=== PATIENT | female | born 1960 ===

== ENCOUNTER 2017-01-24 21:40 | Observation (INO) ==
[2017-01-24] MEDS ORDERED: MORPHINE 2 MG/1 ML SYRINGE IV STA (22:33)
[2017-01-24] MEDS ORDERED: ONDANSETRON 4 MG/2 ML VIAL IV STA (22:33)
[2017-01-24] MEDS ORDERED: ONDANSETRON 4 MG/2 ML VIAL ONE (22:39)
[2017-01-24] MEDS ORDERED: MORPHINE 2 MG/1 ML SYRINGE ONE (22:40)
--- NOTE | 2017-01-24 22:44 | Emergency Department Note ---
Augusto Major Brittany, am scribing for, and in the presence of, Jes Mendez DO 22:36. IAndrea Debra, DO, personally performed the services described in this documentation, ascribed by Agata Casas in my presence, and it is both accurate and complete 240 . Arrival - Arrival Chief Complaint: Chest Pain ED Nursing Triage Note: pt transferred from [facility] with c/o chest pain. pt states cp began approx 5 days ago. pt has hx cabg in 2000, htn, dm. rates pain "8" at time of triage. 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 Mode of Arrival: Stretcher Limitations: No Limitations Source: Patient, RN Notes Reviewed - History of Present Illness HPI Narrative: Ms. Gunter is a 56 y/o female presenting to the ED by EMS from [facility] for further evaluation of chest pain. Patient reports that she initially presented to [facility] with c/o chest pain which began 5 days ago which worsened 30 minutes prior to her arrival at [facility]. Patient describes this pain as in the left side of the chest radiating into the left arm. She rates this pain a 10/10 on initial onset, but as of now an 8/10 in severity. 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 Patient has a history of CABG in 2000. She has a past medical history significant for HTN and IDDM. No other complaint/pain. Onset (ago): day(s) (5) Consistency: constant Severity: severe Severity scale (1-10): 8 Quality: aching Allergies/Adverse Reactions: Allergies Allergy/AdvReac Type Severity Reaction Status Date / Time No Known Allergies Allergy Unverified 03/05/15 00:16 Home Medications: Home Medications Medication Instructions Recorded Confirmed Type Aspirin EC Tab 81 mg PO DAILY #30 tablet 12/20/14 Rx Aspirin EC Tab 81 mg PO DAILY 03/05/15 03/05/15 History Atorvastatin [Lipitor] 40 mg PO BEDTIME #30 tablet 03/05/15 Rx Carvedilol [Coreg] 3.125 mg PO BID #60 tablet 03/05/15 Rx Cefuroxime Tab [Ceftin] 500 mg PO BID #10 tablet 03/05/15 Rx Clopidogrel [Plavix] 75 mg PO DAILY #30 tablet 03/05/15 Rx Furosemide Tab [Lasix Tab] 20 mg PO DAILY #30 tablet 03/05/15 Rx Lisinopril [Prinivil] 20 mg PO DAILY #30 tablet 03/05/15 Rx Potassium Chloride 10 meq PO DAILY #30 capsule.er 03/05/15 Rx glyBURIDE [Diabeta] 5 mg PO BID W/MEALS #60 tablet 03/05/15 Rx metFORMIN [Glucophage] 500 mg PO BID W/MEALS #60 tablet 03/05/15 Rx Diphenoxylate/Atrop 2.5-0.025 1 tablet PO Q6H PRN #12 tablet 05/22/16 Rx [Lomotil Tab] Ondansetron Tab [Zofran Tab] 4 mg PO Q4H PRN #16 tablet 05/22/16 Rx Review of System - Review of System 12 point system: reviewed and no additional remarkable complaints except as stated - Review of System Constitutional: Absent: chills, fever Eyes: Absent: vision change Head/Ears/Nose/Throat: Absent: nasal drainage, sore throat Respiratory: Absent: respiratory distress Cardiovascular: Present: as per HPI, chest pain Gastrointestinal: Absent: abdominal pain, nausea, vomiting, diarrhea, constipation Genitourinary female: Absent: dysuria, frequency, urgency Musculoskeletal: Present: as per HPI, arm pain. Absent: back pain, leg pain, neck pain Skin: Absent: rash Neurological: Absent: headache Psychiatric: Absent: anxiety, depression Hematological/Lymphatic: Absent: easy bleeding, easy bruising Medical,Surgical,& Family Hx - Medical History Cardio: History of: Congenital Heart Disease, CAD, Hypertension, [place], Cardiovascular Problems Endocrine: History of: Diabetes Mellitus (IDDM), Diabetes Mellitus (NIDDM), Dyslipidemia - Surgical History Cardiac Surgeries: Sugical HX of: Cardiac Catheterization, Cardiac Surgery ( cabg 2000) Abdominal Surgeries: Surgical HX of: Cholecystectomy Reproductive Surgeries: Surgical HX of;: Hysterectomy Orthopedic Surgeries: Surgical HX of;: Orthopedic Surgery (left knee surgery) - Family History Family History: Reports;: Family Diabetes (Brother, Mom) - Social History Smoking Status: Smoker, status unknown Frequency of Alcohol Use: None Type of Drug Use: None Exam Vital Signs: Vital Signs Temperature 98.4 F 01/24/17 21:40 Pulse Rate 67 01/24/17 21:40 Respiratory Rate 20 01/24/17 21:40 Blood Pressure 160/64 01/24/17 21:40 O2 Sat by Pulse Oximetry 100 01/24/17 21:40 - General General appearance: alert, in no apparent distress, obese (mildly obese) - Head Head exam: Present: atraumatic, normocephalic, normal inspection - Eye Eye exam: Present: normal appearance, PERRL, EOMI - ENT ENT exam: Present: normal exam, normal oropharynx - Neck Neck exam: Present: normal inspection, full ROM, trachea midline - Chest Chest inspection: Present: symmetric chest wall rise. Absent: normal inspection (old surgical scar consistent with CABG) - Respiratory Respiratory exam: Present: normal lung sounds bilaterally - Cardiovascular Cardiovascular exam: Present: regular rate, normal rhythm, normal heart sounds - Abdominal Exam Abdominal exam: Present: soft, normal bowel sounds - Extremities Exam Extremities exam: Present: normal inspection - Back Exam Back exam: Present: normal inspection - Neurological Exam Neurological exam: Present: alert, oriented X3, CN II-XII intact. Absent: motor sensory deficit - Psychiatric Psychiatric exam: Present: normal affect, normal mood - Skin Skin exam: Present: warm, dry, intact, normal color Course Course Narrative: spoke with hospitalist who will admit pt. Results - Labs Lab Results: I have reviewed the patients labs Disposition Clinical Impression: Chest pain Case discussed with: patient Disposition: Still a Patient Condition: Stable Time of Disposition: 22:51
[2017-01-24 23:36] LABS: Troponin I Only 0.015 NG/ML (0.00-0.045)
[2017-01-24] MEDS ORDERED: DIPHENOXYLATE/ATROPINE 2.5-0.025 MG TABLET PO PRN (23:57)
[2017-01-24] MEDS ORDERED: ACETAMINOPHEN 325 MG TABLET PO PRN (23:58)
[2017-01-24] MEDS ORDERED: MORPHINE 2 MG/1 ML SYRINGE IV PRN (23:58)
[2017-01-24] MEDS ORDERED: ONDANSETRON 4 MG/2 ML VIAL IV PRN (23:58)
[2017-01-24] MEDS ORDERED: BISACODYL 5 MG TABLET PO PRN (23:58)
[2017-01-25] MEDS ORDERED: GLUCAGON 1 MG VIAL IM PRN (00:01)
[2017-01-25] MEDS ORDERED: DEXTROSE 50% 25 GM/50 ML VIAL IV PRN (00:01)
--- NOTE | 2017-01-25 00:02 | Hospitalist History & Physical ---
Assessment and Plan (1) Chest discomfort Status: Acute Current Visit: Yes (2) Uncontrolled hypertension Status: Acute Current Visit: Yes (3) Insulin dependent diabetes mellitus Status: Acute Current Visit: Yes (4) Medical non-compliance Status: Acute Current Visit: Yes (5) Hx of CABG Status: Acute Assessment and plan: Plan: Observe on telemetry, enzymes negative thus far, will repeat one more in the morning Resume home medications, patient counseled on her noncompliance Sliding-scale/Accu-Cheks, diabetic/cardiac diet check A1c in the morning Cardiology consultation to determine whether she requires further noninvasive versus invasive testing Current Visit: Yes History of Present Illness Chief complaint: Chest discomfort 2 days, transferred from outside hospital History of present illness: Ms. Gunter is a 56 year old female with history of CABG in 2000, hypertension, insulin-dependent diabetes, out of meds for the last 2 days or more he was approximately 2-3 days of waxing and waning left-sided chest pain with radiation down the left arm. She describes the pain as sharp/pressure-like. It occurs at rest and exertion. She states became more intense earlier this evening prompting her to come to the emergency room. She thinks her package wrapper might be Dr. Pinto she thinks she has not seen him in quite some time. She denies nausea vomiting or diarrhea. She denies shortness of breath. Her pain responded well to nitroglycerin and morphine. She is a long history of noncompliance. She had a heart catheterization back in 2014 which did not require intervention showed preserved LV function. Home Medications Medication Instructions Recorded Confirmed Type Aspirin EC Tab 81 mg PO DAILY #30 tablet 12/20/14 Rx Aspirin EC Tab 81 mg PO DAILY 03/05/15 03/05/15 History Atorvastatin [Lipitor] 40 mg PO BEDTIME #30 tablet 03/05/15 Rx Carvedilol [Coreg] 3.125 mg PO BID #60 tablet 03/05/15 Rx Cefuroxime Tab [Ceftin] 500 mg PO BID #10 tablet 03/05/15 Rx Clopidogrel [Plavix] 75 mg PO DAILY #30 tablet 03/05/15 Rx Furosemide Tab [Lasix Tab] 20 mg PO DAILY #30 tablet 03/05/15 Rx Lisinopril [Prinivil] 20 mg PO DAILY #30 tablet 03/05/15 Rx Potassium Chloride 10 meq PO DAILY #30 capsule.er 03/05/15 Rx glyBURIDE [Diabeta] 5 mg PO BID W/MEALS #60 tablet 03/05/15 Rx metFORMIN [Glucophage] 500 mg PO BID W/MEALS #60 tablet 03/05/15 Rx Diphenoxylate/Atrop 2.5-0.025 1 tablet PO Q6H PRN #12 tablet 05/22/16 Rx [Lomotil Tab] Ondansetron Tab [Zofran Tab] 4 mg PO Q4H PRN #16 tablet 05/22/16 Rx Allergies Allergy/AdvReac Type Severity Reaction Status Date / Time No Known Allergies Allergy Unverified 03/05/15 00:16 Medical,Surgical,& Family Hx - Medical History Cardio: History of: Congenital Heart Disease, CAD, Hypertension, [place] Endocrine: History of: Diabetes Mellitus (IDDM) (Out of insulin), Dyslipidemia - Surgical History Cardiac Surgeries: Sugical HX of: Cardiac Catheterization, Cardiac Surgery ( cabg 2000) Abdominal Surgeries: Surgical HX of: Cholecystectomy Reproductive Surgeries: Surgical HX of;: Hysterectomy Orthopedic Surgeries: Surgical HX of;: Orthopedic Surgery (left knee surgery) - Family History Family History: Reports;: Family Diabetes (Brother, Mom) - Social History Smoking Status: Smoker, status unknown Frequency of Alcohol Use: None Type of Drug Use: None Marital Status: Unknown Functional capacity: independent ambulation Review of systems: A 12 point review of systems is negative except as specified in the HPI Exam - Constitutional Vitals: Period Temp Pulse Resp BP Sys/Pineda Pulse Ox Last 24 Hr 98.4 F 67 20 160/64 100 Exam: EXAM: CONSTITUTIONAL: non toxic, NAD HEENT: NC, AT, OP poor dentition, ANDRES, EOMI CV: RRR no m/g/r, old midline sternotomy scar, pain slightly reproducible with palpation RESP: clear B/L, no w/r/r GI: abd soft, NT, ND, +bowel sounds INTEGUMENTARY: no lesions or rash EXTREMITIES: no c/c/e NEURO: no focal deficits PSYCH: unremarkable, A/O x3 Results - Labs Lab Results: I have reviewed the past 24 hour labs (Outside labs reviewed, troponin 2 negative) - EKG EKG shows: sinus rhythm
[2017-01-25] MEDS ORDERED: hydrALAZINE 20 MG/1 ML VIAL IV PRN (02:46)
[2017-01-25 04:55] LABS: Basophils % 0.4 % (0.0-0.8); Eosinophils # 0.1 10*3/uL (0.0-0.87); Eosinophils % 1.7 % (0.00-10.9); Hemoglobin 13.5 GM/DL (12.0-16.0); Immature Granulocytes % 0.6 %; Immature Granulocytes Absolute 0.03 #; Lymphocytes # 0.9 10*3/uL (1.4-4.0); Lymphocytes % 16.7 % (21.3-54.2); Mean Corpuscular HGB Conc 34.6 GM/DL (32-36); Mean Corpuscular Hemoglobin 31 PG (27-34); Mean Corpuscular Volume 89.4 FL (87-102); Mean Platelet Volume 11.6 FL (9.6-12.0); Monocytes # 0.3 10*3/uL (0.11-0.8); Neutrophils # 3.9 10*3/uL (1.4-7.4); Neutrophils % 75.6 % (38.7-73.9); Platelet Count 119 T/CUMM (130-400); Red Blood Count 4.36 MC/CUMM (3.8-5.5); Red Cell Distribution Width 12.5 % (9.3-17.3); White Blood Count 5.2 T/CUMM (4-12)
[2017-01-25 05:27] LABS: Troponin I Only < 0.015 NG/ML (0.00-0.045)
[2017-01-25 05:30] LABS: Calcium 9.1 MG/DL (8.5-10.1); Osmolality,Calculated 295.4 MOS/KG (273-304); Potassium 4.2 MMOL/L (3.5-5.1); Risk Ratio 3.33; VLDL CHOLESTEROL 27.6 MG/DL
--- NOTE | 2017-01-25 06:38 | EKG Report ---
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
[2017-01-25] MEDS: INSULIN REGULAR 100 UNIT/ML SUBCUT SCH ×3 (07:16→18:23)
[2017-01-25] MEDS: ENOXAPARIN 40 MG/0.4 ML SYRINGE SUBCUT SCH ×2 (07:18→08:34)
[2017-01-25] MEDS ORDERED: metFORMIN 500 MG TABLET PO SCH (08:00)
[2017-01-25] MEDS: glyBURIDE 5 MG TABLET PO SCH ×2 (08:34→16:41)
[2017-01-25] MEDS ORDERED: CLOPIDOGREL 75 MG TABLET PO SCH (09:00)
[2017-01-25] MEDS ORDERED: ASPIRIN EC 81 MG TABLET PO SCH (09:00)
[2017-01-25] MEDS ORDERED: CARVEDILOL 3.125 MG TABLET PO SCH (09:00)
[2017-01-25] MEDS ORDERED: POTASSIUM CHLORIDE 10 MEQ TABLET PO SCH (09:00)
[2017-01-25] MEDS ORDERED: LISINOPRIL 20 MG TABLET PO SCH (09:00)
[2017-01-25] MEDS ORDERED: FUROSEMIDE 20 MG TABLET PO SCH (09:00)
[2017-01-25] MEDS ORDERED: PANTOPRAZOLE 40 MG TABLET PO SCH (09:00)
--- NOTE | 2017-01-25 09:02 | Cardiology Consult Note ---
Assessment and Plan - Time spent with patient Time spent with patient: Greater than 30 minutes (1) Chest pain Status: Acute Current Visit: No (2) Hx of CABG Status: Acute Assessment and plan: See plan of care listed below. Current Visit: Yes (3) Medical non-compliance Status: Chronic Assessment and plan: See plan of care listed below. Current Visit: Yes (4) Uncontrolled hypertension Status: Chronic Assessment and plan: See plan of care listed below. Current Visit: Yes (5) Coronary artery disease Status: Chronic Assessment and plan: See plan of care listed below. Current Visit: No (6) Type 2 diabetes mellitus Status: Chronic Assessment and plan: See plan of care listed below. Current Visit: No (7) Hyperlipidemia Status: Chronic Assessment and plan: See plan of care listed below. Current Visit: Yes (8) Cardiac murmur Status: Acute Assessment and plan: See plan of care listed below. Current Visit: Yes (9) Cardiomyopathy Status: Acute Assessment and plan: See plan of care listed below. Current Visit: Yes History of Present Illness - Data of Consult Patient: known to practice within the last 3 years Consult date: 01/25/17 Requesting Physician: Eduardo Savage - Consult Narrative Reason for consult: Chest pain, known coronary artery disease History of present illness: Vp Product Management: Dr. Pinto Ms. Gunter is a 56 year old female with known history of coronary artery disease, routinely followed by Dr. Pinto. She was transferred from [facility] yesterday evening with complaints of chest pain. She has cardiac risk factors significant for known history of coronary artery disease, diabetes, hyperlipidemia, hypertension and sedentary lifestyle. Patient has a past medical history of congestive heart failure, cardiomyopathy (most recent ejection fraction 30%) and medication noncompliance. Patient is a past surgical history of CABG in 2001 with ROMANO to LAD and SVG to circumflex marginal coronary artery. She underwent cardiac stress testing February 2016 which revealed fixed anterior defect and ejection fraction of 30%. Her most recent cardiac catheterization was performed in 2014 with the following impressions noted: IMPRESSION: 1. HIGH-GRADE CORONARY ARTERY DISEASE IN THE LEFT CIRCUMFLEX DISTRIBUTION DESCRIBED ABOVE. 2. PATENT SAPHENOUS VEIN GRAFT TO THE OBTUSE MARGINAL BRANCH. 3. ATRETIC LEFT INTERNAL MAMMARY ARTERY ARTERIAL GRAFT, BUT THE LEFT ANTERIOR DESCENDING ARTERY DOES NOT HAVE ANY SIGNIFICANT OBSTRUCTIVE DISEASE AT THIS TIME. 4. PRESERVED LEFT VENTRICULAR EJECTION FRACTION. Ejection fraction 50-55 percent with normal regional wall motion. Patient was in her usual state of health until approximately 2-3 days ago when she began experiencing a pressure/tightening left-sided chest pain that radiated down her left arm. She reports that this occurs at both rest and exertion and it feels very similar to when she required bypass surgery. She denies shortness of breath, nausea, vomiting, diaphoresis, orthopnea, lower extremity swelling and palpitations. However, she does confirm easy fatigability and change in her exercise tolerance over the past several weeks. Last night, her chest pain became progressively worse while she was getting ready to go to work. She tells me that she did not feel good and at that point she decided to call the ambulance for further evaluation. She reports that this discomfort was worsened with walking. The chest discomfort continued for approximately 1 hour and was made better after receiving nitroglycerin in the ambulance. She was transported to [facility]. No records in EMR from to the hospital. She was then transported to [facility] for further evaluation of her chest discomfort. She was admitted under hospitalist service and housed on the telemetry unit. Cardiology has been consulted to further evaluate patient's chest discomfort. Patient was seen and examined on the telemetry unit. She is currently without chest pain, heaviness and tightness. Cardiac biomarkers have been negative 2. EKG reveals ST changes and T-wave abnormality inferiolaterally. Upon exam, patient's chest is tender to palpation. However, she tells me that this is not the same pain that she has been experiencing. At this point, I will keep patient n.p.o. and further discuss with Dr. Pinto regarding the need for further cardiac workup. Further plan and addendum to follow per Dr. Pinto. Assessment/plan: 1. CHEST PAIN - Patient was transported to [facility] with left-sided chest discomfort that radiated to her left arm. She reports that this pain is very similar to when she underwent CABG in 2000. Currently, patient is without chest pain, heaviness and tightness. Cardiac biomarkers have been negative 2. However, her EKG does reveal ST changes and T-wave abnormality inferior laterally. For this reason, I feel that patient will need further cardiac workup. At this point, I will keep patient n.p.o. and, hold metformin further discuss with Dr. Blair. 2. CORONARY ARTERY DISEASE - Patient has history of coronary artery disease with CABG in 2000 with ROMANO to LAD and SVG to circumflex marginal coronary artery. Continue aspirin, Plavix, beta-fransisca and lipid lowering agent. 3. DIABETES - Patient has been noncompliant with her diabetic medications. At this point, I will hold patient's metformin as she may undergo invasive workup later today. Sliding scale insulin has been initiated. Will defer further management to attending. 4. HYPERTENSION - This is been suboptimally controlled. Suspect patient is noncompliant with medications. I will increase patient's Coreg today and make further adjustments as needed throughout her hospital stay. 5. HYPERLIPIDEMIA - Continue current plan of care with Lipitor. 6. CARDIOMYOPATHY - This appears to be clinically stable at present. Most recent ejection fraction 30% noted in February 2016. Will continue current plan of care with beta-fransisca, DISHA inhibitor and diuretics. Will make further adjustments as needed throughout her hospital stay. 7. CARDIAC MURMUR - Will order echocardiogram to further evaluate this. 8. MEDICATION NONCOMPLIANCE - Counseled patient on importance of compliance with medications. CC: Farnaz Morris MD - Home Medications and Allergies Home Medications: Home Medications Medication Instructions Recorded Confirmed Type Aspirin EC Tab 81 mg PO DAILY #30 tablet 12/20/14 Rx Aspirin EC Tab 81 mg PO DAILY 03/05/15 03/05/15 History Atorvastatin [Lipitor] 40 mg PO BEDTIME #30 tablet 03/05/15 Rx Carvedilol [Coreg] 3.125 mg PO BID #60 tablet 03/05/15 Rx Cefuroxime Tab [Ceftin] 500 mg PO BID #10 tablet 03/05/15 Rx Clopidogrel [Plavix] 75 mg PO DAILY #30 tablet 03/05/15 Rx Furosemide Tab [Lasix Tab] 20 mg PO DAILY #30 tablet 03/05/15 Rx Lisinopril [Prinivil] 20 mg PO DAILY #30 tablet 03/05/15 Rx Potassium Chloride 10 meq PO DAILY #30 capsule.er 03/05/15 Rx glyBURIDE [Diabeta] 5 mg PO BID W/MEALS #60 tablet 03/05/15 Rx metFORMIN [Glucophage] 500 mg PO BID W/MEALS #60 tablet 03/05/15 Rx Diphenoxylate/Atrop 2.5-0.025 1 tablet PO Q6H PRN #12 tablet 05/22/16 Rx [Lomotil Tab] Ondansetron Tab [Zofran Tab] 4 mg PO Q4H PRN #16 tablet 05/22/16 Rx Allergies/Adverse Reactions: Allergies Allergy/AdvReac Type Severity Reaction Status Date / Time No Known Allergies Allergy Unverified 03/05/15 00:16 - Constitutional Constitutional: Present: fatigue, malaise. Absent: chills, fever(s), frequent falls, lethargy - Cardiovascular Cardiovascular: Present: chest pain at rest, chest pain with activity, radiating jaw, neck or arm pain. Absent: claudication, diaphoresis, dyspnea, dyspnea on exertion, edema, lightheadedness, orthopnea, palpitations, PND - Respiratory Respiratory: Absent: cough, dyspnea, hemoptysis, dyspnea on exertion, wheezing, snoring, pain on inspiration, change in phlegm color - Gastrointestinal Gastrointestinal: Absent: abdominal pain, coffee ground emesis, diarrhea, hematemesis, hematochezia, loose stools, melena, nausea, vomiting - Neurological Neurological: Absent: abnormal gait, abnormal speech, behavioral changes, dizziness, frequent falls, paresthesias, syncope - Hematologic/Lymphatic Hematologic/Lymphatic: Absent: easy bleeding, easy bruising, lymphadenopathy Medical,Surgical,& Family Hx - Medical History Cardio: History of: Congenital Heart Disease, CHF, CAD, Hypertension, [place], Cardiovascular Problems HEENT: History of: Eye Problem (poor vision) Endocrine: History of: Diabetes Mellitus (NIDDM), Dyslipidemia Musculoskeletal: History of: Musculoskeletal Problems (Arthritis-bilateral knees ) - Surgical History Cardiac Surgeries: Sugical HX of: Cardiac Catheterization, Cardiac Surgery ( cabg 2000) Thoracic Surgeries: Patient denies;: Lobectomy Neurologic Surgeries: Patient denies: Neurologic Surgery Abdominal Surgeries: Surgical HX of: Abdominal Surgery, Cholecystectomy Reproductive Surgeries: Surgical HX of;: Hysterectomy Patient denies;: Genitourinary Surgery Orthopedic Surgeries: Surgical HX of;: Orthopedic Surgery (left knee surgery) - Family History Family History: Reports;: Family Diabetes (Brother, Mom) - Social History Smoking Status: Never smoker Frequency of Alcohol Use: None Type of Drug Use: None Physical Examination Vital Signs Temp Pulse Resp BP Pulse Ox 98.4 F 67 20 160/64 100 01/24/17 21:40 01/24/17 21:40 01/24/17 21:40 01/24/17 21:40 01/24/17 21:40 Other: General: Appears well with no apparent distress. Pleasant and cooperative. Appears comfortable. HEENT: PERRL, normocephalic, atraumatic. Mucous membranes moist. No jaundice noted. Conjunctiva moist and clear, sclerae anicteric Neck: No JVD/HJR, no thyromegaly or lymphadenopathy noted. Cardiac: Regular rate and rhythm. Grade 2 systolic murmur Lungs: Clear to auscultation without accessory muscle use to assist the respiratory pattern. Not requiring oxygen. Abdomen: Soft, bowel sounds normoactive. Nontender and nondistended. No abdominal bruit or thrill noted. No masses noted. Extremities: No clubbing, cyanosis noted. No edema noted. Upper extremity pulses 2+. Lower extremity pulses 2+. Capillary refill less than 3 seconds. Skin: No unusual lesions or rashes. No skin breakdown appreciated. Neuro: Awake, alert and oriented 3. Moves all extremities well without hemiparesis or paralysis. No essential tremor is appreciated. Result/EKG - Labs CBC & BMP: 01/25/17 04:29 01/25/17 04:29 Lab Results: I have reviewed the past 24 hour labs Labs: Laboratory Results - last 24 hr 01/24/17 01/25/17 01/25/17 22:49 04:29 04:29 WBC 5.2 RBC 4.36 Hgb 13.5 Hct 39.0 MCV 89.4 MCH 31 MCHC 34.6 RDW 12.5 Plt Count 119 L MPV 11.6 Neut % (Auto) 75.6 H Lymph % (Auto) 16.7 L [place] % (Auto) 5.0 Eos % (Auto) 1.7 Baso % (Auto) 0.4 Neut # (Auto) 3.9 Lymph # (Auto) 0.9 L [place] # (Auto) 0.3 Eos # (Auto) 0.1 Baso # (Auto) 0.0 Immature Gran % 0.6 Nucleated RBC % 0.0 Immature Gran # 0.03 Nucleated RBCs # 0.00 Sodium 140 Potassium 4.2 Chloride 103 Carbon Dioxide 29 Anion Gap 12.2 BUN 20 H Creatinine 0.70 GFR Calculation 91 BUN/Creatinine Ratio 28.00 H Glucose 345 H POC Glucose Hemoglobin A1c Calculated Osmolality 295.4 Calcium 9.1 Magnesium 2.0 Total Creatine Kinase 54 CK-MB (CK-2) < 1.0 Troponin I 0.015 Triglycerides 138 Cholesterol 183 LDL Cholesterol 108.0 VLDL Cholesterol 27.6 HDL Cholesterol 55 Heart Disease Risk Ratio 3.33 01/25/17 01/25/17 01/25/17 04:29 04:29 06:07 WBC RBC Hgb Hct MCV MCH MCHC RDW Plt Count MPV Neut % (Auto) Lymph % (Auto) [place] % (Auto) Eos % (Auto) Baso % (Auto) Neut # (Auto) Lymph # (Auto) [place] # (Auto) Eos # (Auto) Baso # (Auto) Immature Gran % Nucleated RBC % Immature Gran # Nucleated RBCs # Sodium Potassium Chloride Carbon Dioxide Anion Gap BUN Creatinine GFR Calculation BUN/Creatinine Ratio Glucose POC Glucose 305 H Hemoglobin A1c 12.2 H Calculated Osmolality Calcium Magnesium Total Creatine Kinase 48 CK-MB (CK-2) < 1.0 Troponin I < 0.015 Triglycerides Cholesterol LDL Cholesterol VLDL Cholesterol HDL Cholesterol Heart Disease Risk Ratio 01/25/17 07:50 WBC RBC Hgb Hct MCV MCH MCHC RDW Plt Count MPV Neut % (Auto) Lymph % (Auto) [place] % (Auto) Eos % (Auto) Baso % (Auto) Neut # (Auto) Lymph # (Auto) [place] # (Auto) Eos # (Auto) Baso # (Auto) Immature Gran % Nucleated RBC % Immature Gran # Nucleated RBCs # Sodium Potassium Chloride Carbon Dioxide Anion Gap BUN Creatinine GFR Calculation BUN/Creatinine Ratio Glucose POC Glucose 344 H Hemoglobin A1c Calculated Osmolality Calcium Magnesium Total Creatine Kinase CK-MB (CK-2) Troponin I Triglycerides Cholesterol LDL Cholesterol VLDL Cholesterol HDL Cholesterol Heart Disease Risk Ratio
[2017-01-25] MEDS ORDERED: CARVEDILOL 6.25 MG TABLET PO SCH (09:33)
[2017-01-25] MEDS ORDERED: POTASSIUM CHLORIDE RIDER 10 MEQ in PREMIX 1 EACH IV PRN (09:45)
[2017-01-25] MEDS ORDERED: DIAZEPAM 5 MG TABLET PO ONE (09:45)
[2017-01-25] MEDS ORDERED: MAGNESIUM SULF RIDER 2 GM in PREMIX 1 EACH IV PRN (09:45)
[2017-01-25] MEDS ORDERED: diphenhydrAMINE CAP 25 MG CAPSULE PO ONE (09:45)
[2017-01-25] MEDS ORDERED: HEPARIN/NACL 0.9% 2 UNITS/ML 1,000 ML IV ONE (09:48)
[2017-01-25] MEDS ORDERED: LIDOCAINE 1% 20 ML VIAL ONE (09:48)
[2017-01-25] MEDS ORDERED: HYDROmorphone 2 MG/1 ML VIAL ONE (09:49)
[2017-01-25] MEDS ORDERED: MIDAZOLAM 2 MG/2 ML VIAL ONE (09:49)
[2017-01-25] MEDS ORDERED: diphenhydrAMINE CAP 50 MG CAPSULE ONE (10:00)
[2017-01-25] MEDS ORDERED: SODIUM CHLORIDE 0.45% 1,000 ML IV SCH (10:00)
[2017-01-25 10:21] LABS: PT Patient Result 10.8 SECS
[2017-01-25] MEDS ORDERED: ceFAZolin 1,000 MG VIAL ONE (10:50)
--- NOTE | 2017-01-25 11:02 | Cardiac Catheterization ---
Date of Procedure:: 01/25/17 Procedure: CLINICAL SUMMARY: The patient has known coronary artery disease and presented with chest pain symptoms and new EKG changes. She is undergoing cardiac catheterization for definitive coronary artery assessment and possible revascularization. PROCEDURES PERFORMED: 1. Right femoral percutaneous arteriotomy 2. Left heart catheterization. 3. Resting hemodynamics. 4. Left ventriculography. 5. Coronary arteriography. 6. Right femoral arteriogram. 7. Angio-Seal closure of the right femoral artery. 8. Coronary artery bypass graft angiography. DESCRIPTION OF PROCEDURE: After obtaining informed consent, the patient was brought to the cardiac catheterization lab where the right groin was prepped and draped in the usual sterile manner. Using IV sedation, local anesthesia, and Modified Seldinger technique, a needle was placed in the right femoral artery and a sheath was positioned without difficulty. A left coronary catheter was advanced over a guidewire under fluoroscopic control to the ascending aorta where angiograms of the left coronary artery were undertaken in multiple views. After adequate angiograms, this catheter was withdrawn and a right coronary catheter was advanced over a guidewire under fluoroscopic control to the ascending aorta with angiograms of the RCA were undertaken in numerous projections. After adequate angiograms, this catheter was removed and a pigtail ventriculographic catheter was advanced over a guidewire under fluoroscopic control to the aortic valve and left ventricular pressures were measured. After adequate pressures were measured, this catheter was used to perform left ventriculography in the CONTRERAS projection. This catheter was then withdrawn under hemodynamic monitoring and removed from the patient. A right femoral arteriogram was performed showing adequate sheath placement for closure device deployment. The sheath was then removed and an Angio-Seal device was used to obtain hemostasis. The patient was transferred back to the room having suffered no immediate complications. HEMODYNAMICS: See the accompanying data sheet. CORONARY ARTERIOGRAPHY: CORONARY ARTERIOGRAPHY: The left main coronary artery is a moderate-sized vessel, which bifurcates into the left anterior descending and left circumflex coronary arteries. The left main coronary artery is angiographically free of significant obstructive disease. The left circumflex coronary artery is a moderate-sized vessel, which gives off a moderate-sized obtuse marginal branch, which is occluded at its origin. This branch is seen filling via a patent saphenous vein graft. The left anterior descending coronary artery is a moderate-sized vessel which gives off a moderate-sized diagonal branch. There are mild luminal irregularities of up to 30% to 40% in the left anterior descending artery but I do not see any significant focal obstructive disease. There also may be a 60% stenosis of the origin of the second septal crook operator. The right coronary artery is a large caliber vessel which gives off the posterior descending artery in a posterolateral system. The right coronary artery is angiographically free of significant obstructive disease. There is a saphenous vein graft to the obtuse marginal branch: This graft appears to be widely patent with brisk FRANDY-III flow. The left internal mammary arterial graft appears to be atretic. The right femoral arteriogram shows a normal right iliofemoral artery with adequate sheath placement for closure device deployment. LEFT VENTRICULOGRAPHY: Left ventricular systolic function is preserved with an ejection fraction estimated at 60-65% with normal regional wall motion. PERIPHERAL ARTERIOGRAPHY: Right femoral arteriogram shows a normal right iliofemoral artery with adequate sheath placement for closure device deployment. IMPRESSIONS: 1. I do not see any significant obstructive disease in need of revascularization at this time. The saphenous vein graft to the obtuse marginal was widely patent. The internal mammary artery is atretic, but the left anterior descending does not have any significant high-grade disease at this time. 2. Normal right iliofemoral arterial system was successfully and distal closure of this vessel. 3. Preserved left ventricular systolic function. PLAN: The patient's cardiac catheterization has not shown any significant change since her previous catheterization in 2014. I do not see any high-grade disease in need of revascularization at this time. I would continue/resume medical therapy. Unfortunately, the patient has a history of severe noncompliance with medical therapy and follow-up. From my standpoint, she could be discharged home later today. I would like to follow-up with her in a couple of weeks for post cath groin check and routine follow-up on her medical problems. Anesthesia: minimal conscious sedation Surgeon / Physician: Abhi Pinto Estimated blood loss: minimal Condition: stable Disposition: floor - Medications / Follow-up
--- NOTE | 2017-01-25 12:02 | Discharge Summary ---
<Chandler Chinchilla - Last Filed: 01/25/17 11:47> Hospital Course - Hospital Course Hospital Course: This is a very pleasant 56-year-old female that presented to the ED at [facility] this morning for evaluation of chest pain and discomfort. The patient has a very extensive medical history significant for congenital heart disease, coronary artery disease, hypertension, myocardial infarction, insulin-dependent diabetes mellitus, and dyslipidemia. The patient has a surgical history of coronary artery bypass graft in 2000, heart catheterization, cholecystectomy, hysterectomy, and left knee surgery. The patient reported the onset of symptoms 2 days prior to presentation. She reported that she was out of her medications. She reported left-sided chest pain with radiation down the left arm and describes the pain as sharp and pressure-like in quality. In addition she reported that the pain occurs with both rest and exertion. She reports that the pain became so intense that she was prompted to present to the ED for further evaluation. Labs were obtained at the time of presentation. Troponin level was noted at less than 0.015. The patient was subsequently admitted to the hospitalist services for continuation of care. Cardiology was consulted at that time. On this morning the patient underwent cardiac catheterization which was essentially benign. The patient's condition is stable and she has been cleared for discharge from a cardiac standpoint. We agree with used car make ready worker recommendations. The patient will be discharged to follow-up with her primary care physician and used car make ready worker as indicated. I have seen and examined Mrs Gunter and agree with the summary above. I have reconciled her medications and counselled her about compliance with her medication regimen. Her HgbA1C is 12. She has not been taking her meds, so I am reluctant to change them as I may overshoot. She is instructed to check her blood sugars, write them down and take them to her appointment at [facility] while using the glyburide, levemir and novolog as she was prescribed previously. Specialty Discharge - Follow Up or Referrals Follow up with: Abhi Pinto MD [Physician] - 5 Days your, PCP [Other] - 2 Weeks Discharge Plan - Discharge Data Disposition: Disch To Home/Self Care - Discharge Medications New glyBURIDE [Diabeta] 5 mg PO BID W/MEALS #60 tablet Carvedilol [Coreg] 6.25 mg PO BID #60 tablet Continue Aspirin EC Tab 81 mg PO DAILY Insulin Detemir [Levemir FlexPen] 30 units SUBCUT BEDTIME Carvedilol 12.5 mg PO BID #60 tablet Clopidogrel [Plavix] 75 mg PO DAILY #30 tablet Furosemide 40 mg PO DAILY #30 tablet NIFEdipine [Nifedipine ER] 30 mg PO BEDTIME #30 tablet Potassium Chloride [Klor-Con M20] 20 meq PO DAILY #30 tablet Insulin Aspart [NovoLOG FlexPen] 7 units SUBCUT TID W/MEALS Lisinopril [Prinivil] 20 mg PO DAILY #30 tablet - Follow Up or Referral - Forms/Instructions Exam - Constitutional Vitals: Period Temp Pulse Resp BP Sys/Pineda Pulse Ox Last 24 Hr 97.4 F-98.4 F 64-92 18-21 140-201/64-92 89-100 Discharge Results Procedures and tests throughout hospitalization: Pending Orders 01/25/17 09:54 CL heart Routine 01/26/17 04:00 Basic Metabolic Panel IN AM Comp Blood Count Auto Diff IN AM Magnesium IN AM Labs on day of discharge: Labs from last 24 hours 01/25/17 01/25/17 01/25/17 11:47 09:56 07:50 WBC RBC Hgb Hct MCV MCH MCHC RDW Plt Count MPV Neut % (Auto) Lymph % (Auto) Cloud % (Auto) Eos % (Auto) Baso % (Auto) Neut # (Auto) Lymph # (Auto) Cloud # (Auto) Eos # (Auto) Baso # (Auto) Immature Gran % Nucleated RBC % Immature Gran # Nucleated RBCs # INR 1.0 PT Patient/Control Mix 10.8 Sodium Potassium Chloride Carbon Dioxide Anion Gap BUN Creatinine GFR Calculation BUN/Creatinine Ratio Glucose POC Glucose 282 H 344 H Hemoglobin A1c Calculated Osmolality Calcium Magnesium Total Creatine Kinase CK-MB (CK-2) Troponin I Triglycerides Cholesterol LDL Cholesterol VLDL Cholesterol HDL Cholesterol Heart Disease Risk Ratio 01/25/17 01/25/17 01/25/17 06:07 04:29 04:29 WBC RBC Hgb Hct MCV MCH MCHC RDW Plt Count MPV Neut % (Auto) Lymph % (Auto) Cloud % (Auto) Eos % (Auto) Baso % (Auto) Neut # (Auto) Lymph # (Auto) Cloud # (Auto) Eos # (Auto) Baso # (Auto) Immature Gran % Nucleated RBC % Immature Gran # Nucleated RBCs # INR PT Patient/Control Mix Sodium Potassium Chloride Carbon Dioxide Anion Gap BUN Creatinine GFR Calculation BUN/Creatinine Ratio Glucose POC Glucose 305 H Hemoglobin A1c 12.2 H Calculated Osmolality Calcium Magnesium Total Creatine Kinase 48 CK-MB (CK-2) < 1.0 Troponin I < 0.015 Triglycerides Cholesterol LDL Cholesterol VLDL Cholesterol HDL Cholesterol Heart Disease Risk Ratio 01/25/17 01/25/17 01/24/17 04:29 04:29 22:49 WBC 5.2 RBC 4.36 Hgb 13.5 Hct 39.0 MCV 89.4 MCH 31 MCHC 34.6 RDW 12.5 Plt Count 119 L MPV 11.6 Neut % (Auto) 75.6 H Lymph % (Auto) 16.7 L Cloud % (Auto) 5.0 Eos % (Auto) 1.7 Baso % (Auto) 0.4 Neut # (Auto) 3.9 Lymph # (Auto) 0.9 L Cloud # (Auto) 0.3 Eos # (Auto) 0.1 Baso # (Auto) 0.0 Immature Gran % 0.6 Nucleated RBC % 0.0 Immature Gran # 0.03 Nucleated RBCs # 0.00 INR PT Patient/Control Mix Sodium 140 Potassium 4.2 Chloride 103 Carbon Dioxide 29 Anion Gap 12.2 BUN 20 H Creatinine 0.70 GFR Calculation 91 BUN/Creatinine Ratio 28.00 H Glucose 345 H POC Glucose Hemoglobin A1c Calculated Osmolality 295.4 Calcium 9.1 Magnesium 2.0 Total Creatine Kinase 54 CK-MB (CK-2) < 1.0 Troponin I 0.015 Triglycerides 138 Cholesterol 183 LDL Cholesterol 108.0 VLDL Cholesterol 27.6 HDL Cholesterol 55 Heart Disease Risk Ratio 3.33 DS: Provider Date of admission: 01/24/17 23:58 Primary care physician: Hellen Lucas MD Attending physician on admission: Eduardo Savage DO Consults: 01/24/17 23:58 Consult to Physician [CONS] Routine Comment: chest pain, hx cabg 2000, IDDM Consulting Provider: Cardiology - [facility] Consult to Specialist Group: Cardiology When should Consulting Provider be notified: In am Person Notified: JUNIOR Date Notified: 01/25/17 Time Notified: 07:45 Discharging clinician: Chandler Chinchilla CNP <Farnaz Morris - Last Filed: 01/25/17 12:50> Hospital Course - Time spent with patient Time with patient DS: Greater than 30 minutes (care coordination, exam, medicine reconciliation, documentation took 35 minutes.) Diagnosis - Discharge Diagnosis (1) Hypertension Status: Chronic (2) Hyperlipidemia associated with type 2 diabetes mellitus Status: Chronic (3) Noncompliance Status: Chronic (4) Type 2 diabetes mellitus Status: Chronic (5) Hx of CABG Status: Chronic (6) Chest pain Status: Acute Discharge Plan - Discharge Data Condition at Discharge: Stable Discharge Diet: diabetic diet, heart healthy Exam - Constitutional General appearance: normal weight, no acute distress - Head Head exam: Present: normocephalic, atraumatic - Eye Eye exam: Present: EOMI. Absent: scleral icterus - Respiratory Respiratory exam: Present: clear to auscultation bilaterally - Cardiovascular Cardiovascular exam: Present: regular rate and rhythm - GI/Abdominal GI/Abdominal exam: Present: normal bowel sounds, soft. Absent: tenderness - Extremities Exam Extremities exam: Absent: edema
[2017-01-25 16:34] VITALS: BP 116/69
[2017-01-25] MEDS ORDERED: ATORVASTATIN 40 MG TABLET PO SCH (21:00)
== END 2017-01-25 18:51 | disposition home or self-care (01) ==
LOC: EDBD → EDUNIT# → N.ED 21:40 → N.EDINP 21:40 → SUATTDRO 23:58 → N.TELEN 01-25 00:46
PROVIDERS: ADMIT Internal Medicine; ATTEND Internal Medicine

== ENCOUNTER 2017-09-26 22:22 | Inpatient (IN) ==
[2017-09-27] MEDS ORDERED: DEXTROSE 50% 25 GM/50 ML VIAL IV PRN (01:54)
[2017-09-27] MEDS ORDERED: ONDANSETRON 4 MG/2 ML VIAL IV PRN (01:54)
[2017-09-27] MEDS ORDERED: GLUCAGON 1 MG VIAL IM PRN (01:54)
[2017-09-27] MEDS ORDERED: BISACODYL 5 MG TABLET PO PRN (01:54)
[2017-09-27] MEDS ORDERED: INSULIN LISPRO 100 UNIT/ML SUBCUT ONE (03:00)
[2017-09-27] MEDS: ENOXAPARIN 40 MG/0.4 ML SYRINGE SUBCUT SCH (03:13)
[2017-09-27 06:02] LABS: Basophils % 0.6 % (0.0-0.8); Eosinophils # 0.1 10*3/uL (0.0-0.87); Eosinophils % 3.5 % (0.00-10.9); Immature Granulocytes % 0.3 %; Immature Granulocytes Absolute 0.01 #; Lymphocytes # 1.4 10*3/uL (1.4-4.0); Lymphocytes % 41.2 % (21.3-54.2); Mean Corpuscular HGB Conc 35.3 GM/DL (32-36); Mean Corpuscular Hemoglobin 31 PG (27-34); Mean Corpuscular Volume 88.1 FL (87-102); Mean Platelet Volume 11.1 FL (9.6-12.0); Monocytes # 0.3 10*3/uL (0.11-0.8); Monocytes % 8.7 % (1.7-12.7); Neutrophils # 1.6 10*3/uL (1.4-7.4); Neutrophils % 45.7 % (38.7-73.9); Platelet Count 104 T/CUMM (130-400); Red Blood Count 3.86 MC/CUMM (3.8-5.5); Red Cell Distribution Width 12.5 % (9.3-17.3); White Blood Count 3.5 T/CUMM (4-12)
[2017-09-27 06:18] LABS: INR 1.1; PT Patient Result 11.1 SECS
[2017-09-27 06:50] LABS: Albumin 2.5 G/DL (3.4-5.0); Bilirubin,Total 0.7 MG/DL (0.2-1.0); Calcium 8.2 MG/DL (8.5-10.1); Magnesium 1.8 MG/DL (1.8-2.4); Potassium 3.2 MMOL/L (3.5-5.1); Risk Ratio 2.23; Thyroid Stimulating Hormone 3.86 uIU/ml (0.358-3.74); Total Protein 6.1 G/DL (6.4-8.3); VLDL CHOLESTEROL 21.4 MG/DL
[2017-09-27 06:54] LABS: Troponin I Only 0.046 NG/ML (0.00-0.045)
[2017-09-27] MEDS: INSULIN LISPRO 100 UNIT/ML SUBCUT SCH ×5 (07:30→20:49)
[2017-09-27] MEDS ORDERED: ASPIRIN 325 MG TABLET PO SCH (09:00)
[2017-09-27] MEDS: CLOPIDOGREL 75 MG TABLET PO SCH (10:56)
[2017-09-27] MEDS: POTASSIUM CHLORIDE 20 MEQ TABLET PO PRN ×3 (10:56→13:50)
[2017-09-27] MEDS: LOSARTAN 50 MG TABLET PO SCH (13:50)
[2017-09-27 13:58] LABS: Troponin I Only 0.034 NG/ML (0.00-0.045)
[2017-09-27] MEDS: ATORVASTATIN 20 MG TABLET PO SCH (20:51)
[2017-09-27] MEDS ORDERED: ROSUVASTATIN 10 MG TABLET PO SCH (21:00)
[2017-09-27] MEDS ORDERED: INSULIN GLARGINE 100 UNIT/ML SUBCUT SCH (21:00)
[2017-09-27] MEDS: CARVEDILOL 3.125 MG TABLET PO SCH (21:49)
[2017-09-28 04:33] LABS: Basophils % 0.3 % (0.0-0.8); Eosinophils # 0.1 10*3/uL (0.0-0.87); Eosinophils % 3.4 % (0.00-10.9); Hematocrit 35.9 VOL% (35.7-47.0); Hemoglobin 12.5 GM/DL (12.0-16.0); Immature Granulocytes % 0.3 %; Immature Granulocytes Absolute 0.01 #; Lymphocytes # 1.3 10*3/uL (1.4-4.0); Mean Corpuscular HGB Conc 34.8 GM/DL (32-36); Mean Corpuscular Hemoglobin 31 PG (27-34); Mean Corpuscular Volume 89.1 FL (87-102); Mean Platelet Volume 11.6 FL (9.6-12.0); Monocytes # 0.3 10*3/uL (0.11-0.8); Monocytes % 7.2 % (1.7-12.7); Neutrophils # 2.2 10*3/uL (1.4-7.4); Neutrophils % 55.8 % (38.7-73.9); Platelet Count 114 T/CUMM (130-400); Red Blood Count 4.03 MC/CUMM (3.8-5.5); Red Cell Distribution Width 12.6 % (9.3-17.3); White Blood Count 3.9 T/CUMM (4-12)
[2017-09-28] MEDS: ENOXAPARIN 40 MG/0.4 ML SYRINGE SUBCUT SCH (04:44)
[2017-09-28 04:57] LABS: Calcium 8.5 MG/DL (8.5-10.1); Osmolality,Calculated 288.1 MOS/KG (273-304); T4 (Thyroxine) 6.4 UG/DL (4.7-13.3); Troponin I Only 0.037 NG/ML (0.00-0.045)
[2017-09-28] MEDS ORDERED: POTASSIUM CHLORIDE 20 MEQ TABLET PO SCH (09:00)
[2017-09-28] MEDS ORDERED: INSULIN GLARGINE 100 UNIT/ML SUBCUT SCH (09:45)
[2017-09-28] MEDS ORDERED: cloNIDine 0.3 MG/24 HR PATCH TRANSDERM SCH (10:00)
[2017-09-28] MEDS: hydrALAZINE 20 MG/1 ML VIAL IV PRN ×2 (10:02→22:16)
[2017-09-28] MEDS: SPIRONOLACTONE 25 MG TABLET PO SCH (10:03)
[2017-09-28] MEDS: CARVEDILOL 3.125 MG TABLET PO SCH (10:03)
[2017-09-28] MEDS: ACETAMINOPHEN 325 MG TABLET PO PRN ×2 (10:03→17:57)
[2017-09-28] MEDS: INSULIN LISPRO 100 UNIT/ML SUBCUT SCH ×7 (10:04→22:14)
[2017-09-28] MEDS: ASPIRIN EC 81 MG TABLET PO SCH (10:04)
[2017-09-28] MEDS: LOSARTAN 50 MG TABLET PO SCH ×2 (10:05)
[2017-09-28] MEDS: CLOPIDOGREL 75 MG TABLET PO SCH (10:05)
[2017-09-28] MEDS: CARVEDILOL 6.25 MG TABLET PO SCH ×2 (13:07→17:08)
[2017-09-28] MEDS: ATORVASTATIN 20 MG TABLET PO SCH (22:18)
[2017-09-29] MEDS: hydrALAZINE 20 MG/1 ML VIAL IV PRN (02:07)
[2017-09-29] MEDS: ENOXAPARIN 40 MG/0.4 ML SYRINGE SUBCUT SCH (04:06)
[2017-09-29 05:17] LABS: Basophils % 0.3 % (0.0-0.8); Eosinophils # 0.1 10*3/uL (0.0-0.87); Eosinophils % 1.5 % (0.00-10.9); Hematocrit 39.1 VOL% (35.7-47.0); Hemoglobin 13.6 GM/DL (12.0-16.0); Immature Granulocytes % 0.3 %; Immature Granulocytes Absolute 0.02 #; Lymphocytes # 0.9 10*3/uL (1.4-4.0); Lymphocytes % 15.2 % (21.3-54.2); Mean Corpuscular HGB Conc 34.8 GM/DL (32-36); Mean Corpuscular Hemoglobin 31 PG (27-34); Mean Corpuscular Volume 88.1 FL (87-102); Mean Platelet Volume 11.6 FL (9.6-12.0); Monocytes # 0.4 10*3/uL (0.11-0.8); Monocytes % 6.2 % (1.7-12.7); Neutrophils # 4.5 10*3/uL (1.4-7.4); Neutrophils % 76.5 % (38.7-73.9); Platelet Count 119 T/CUMM (130-400); Red Blood Count 4.44 MC/CUMM (3.8-5.5); Red Cell Distribution Width 12.6 % (9.3-17.3); White Blood Count 5.9 T/CUMM (4-12)
[2017-09-29 05:45] LABS: Calcium 8.9 MG/DL (8.5-10.1); Osmolality,Calculated 290.3 MOS/KG (273-304); Potassium 3.9 MMOL/L (3.5-5.1)
[2017-09-29] MEDS: CLOPIDOGREL 75 MG TABLET PO SCH (10:06)
[2017-09-29] MEDS: LOSARTAN 50 MG TABLET PO SCH ×2 (10:06→10:07)
[2017-09-29] MEDS: ASPIRIN EC 81 MG TABLET PO SCH (10:06)
[2017-09-29] MEDS: CARVEDILOL 6.25 MG TABLET PO SCH ×2 (10:06→17:18)
[2017-09-29] MEDS: SPIRONOLACTONE 25 MG TABLET PO SCH (10:06)
[2017-09-29] MEDS: INSULIN LISPRO 100 UNIT/ML SUBCUT SCH ×7 (10:07→20:31)
[2017-09-29] MEDS: ACETAMINOPHEN 325 MG TABLET PO PRN ×2 (17:17→20:30)
[2017-09-29] MEDS: ATORVASTATIN 20 MG TABLET PO SCH (20:31)
[2017-09-29] MEDS: INSULIN GLARGINE 100 UNIT/ML SUBCUT SCH (20:32)
[2017-09-30] MEDS: ENOXAPARIN 40 MG/0.4 ML SYRINGE SUBCUT SCH (04:01)
[2017-09-30] MEDS: CLOPIDOGREL 75 MG TABLET PO SCH (09:26)
[2017-09-30] MEDS: INSULIN LISPRO 100 UNIT/ML SUBCUT SCH ×7 (09:26→21:19)
[2017-09-30] MEDS: LOSARTAN 50 MG TABLET PO SCH ×2 (09:27→10:12)
[2017-09-30] MEDS: SPIRONOLACTONE 25 MG TABLET PO SCH (09:27)
[2017-09-30] MEDS: CARVEDILOL 12.5 MG TABLET PO SCH ×2 (09:27→21:15)
[2017-09-30] MEDS: ASPIRIN EC 81 MG TABLET PO SCH (09:27)
[2017-09-30] MEDS: cefTRIAXone 1,000 MG in SYRINGE 1 EACH IV SCH (17:41)
[2017-09-30] MEDS: ATORVASTATIN 20 MG TABLET PO SCH (21:15)
[2017-09-30] MEDS: INSULIN GLARGINE 100 UNIT/ML SUBCUT SCH (21:19)
[2017-10-01] MEDS: ENOXAPARIN 40 MG/0.4 ML SYRINGE SUBCUT SCH (05:21)
[2017-10-01] MEDS: ACETAMINOPHEN 325 MG TABLET PO PRN (05:22)
[2017-10-01] MEDS: LOSARTAN 50 MG TABLET PO SCH (09:18)
[2017-10-01] MEDS: INSULIN LISPRO 100 UNIT/ML SUBCUT SCH ×7 (09:19→22:00)
[2017-10-01] MEDS: ASPIRIN EC 81 MG TABLET PO SCH (09:19)
[2017-10-01] MEDS: SPIRONOLACTONE 25 MG TABLET PO SCH (09:19)
[2017-10-01] MEDS: CLOPIDOGREL 75 MG TABLET PO SCH (09:19)
[2017-10-01] MEDS: CARVEDILOL 12.5 MG TABLET PO SCH ×2 (09:19→21:58)
[2017-10-01] MEDS: cefTRIAXone 1,000 MG in SYRINGE 1 EACH IV SCH (17:05)
[2017-10-01] MEDS: ATORVASTATIN 20 MG TABLET PO SCH (21:58)
[2017-10-01] MEDS: INSULIN GLARGINE 100 UNIT/ML SUBCUT SCH (22:00)
[2017-10-02] MEDS: ENOXAPARIN 40 MG/0.4 ML SYRINGE SUBCUT SCH (05:33)
[2017-10-02 06:05] LABS: Basophils % 0.3 % (0.0-0.8); Eosinophils # 0.1 10*3/uL (0.0-0.87); Eosinophils % 3.3 % (0.00-10.9); Hematocrit 33.7 VOL% (35.7-47.0); Hemoglobin 11.5 GM/DL (12.0-16.0); Immature Granulocytes % 0.5 %; Immature Granulocytes Absolute 0.02 #; Lymphocytes # 0.8 10*3/uL (1.4-4.0); Mean Corpuscular HGB Conc 34.1 GM/DL (32-36); Mean Corpuscular Hemoglobin 31 PG (27-34); Mean Corpuscular Volume 91.8 FL (87-102); Mean Platelet Volume 11.9 FL (9.6-12.0); Monocytes # 0.4 10*3/uL (0.11-0.8); Monocytes % 9.6 % (1.7-12.7); Neutrophils # 2.3 10*3/uL (1.4-7.4); Neutrophils % 64.3 % (38.7-73.9); Platelet Count 91 T/CUMM (130-400); Red Blood Count 3.67 MC/CUMM (3.8-5.5); Red Cell Distribution Width 12.6 % (9.3-17.3); White Blood Count 3.6 T/CUMM (4-12)
[2017-10-02 06:34] LABS: Eosinophils 5 % (0-10); Giant Platelets Few; Hypochromasia 1+; Lymphocytes 21 % (20-55); Ovalocytes Slight; Platelet Estimate Decreased; Segmented Neutrophils 66 % (50-85); Total Cells Counted 100
[2017-10-02 06:48] LABS: Calcium 8.5 MG/DL (8.5-10.1); Potassium 4.3 MMOL/L (3.5-5.1)
[2017-10-02] MEDS: INSULIN LISPRO 100 UNIT/ML SUBCUT SCH ×3 (07:48→11:19)
[2017-10-02] MEDS: CARVEDILOL 12.5 MG TABLET PO SCH (09:49)
[2017-10-02] MEDS: ASPIRIN EC 81 MG TABLET PO SCH (09:49)
[2017-10-02] MEDS: LOSARTAN 50 MG TABLET PO SCH (09:49)
[2017-10-02] MEDS: CLOPIDOGREL 75 MG TABLET PO SCH (09:49)
[2017-10-02] MEDS: SPIRONOLACTONE 25 MG TABLET PO SCH (09:49)
[2017-10-02 14:41] VITALS: BP 104/58
== END 2017-10-02 14:30 | DRG 65 ==
LOC: SUATTDRO 09-27 00:43 → N.CC 09-27 00:43 → N.4E 09-27 16:40
PROVIDERS: ADMIT Internal Medicine

== ENCOUNTER 2018-02-11 12:25 | Inpatient (IN) ==
[2018-02-11 13:19] LABS: Apearance,Urine CLOUDY (Clear); Bacteria,Urine Occasional /HPF (Few); Bilirubin,Urine Negative (Negative); Blood, Urine Small mg/dL (Negative); Glucose,Urine (UA) Negative (Negative); Ketones,Urine Negative (Negative); Mucus,Urine Many /LPF (Occasional); Nitrite,Urine Negative (Negative); Protein,Urine 30 MG/DL; RBC,Urine 7 /HPF (0-4); Urine Color Amber (Yellow); Urine Specific Gravity 1.008 (1.001-1.035); WBC,Urine 798 /HPF (0-6)
[2018-02-11 13:36] LABS: Basophils % 0.4 % (0.0-0.8); Eosinophils # 0.1 10*3/uL (0.0-0.87); Hematocrit 33.1 VOL% (35.7-47.0); Hemoglobin 11.3 GM/DL (12.0-16.0); Immature Granulocytes % 0.2 %; Immature Granulocytes Absolute 0.01 #; Lymphocytes % 19.2 % (21.3-54.2); Mean Corpuscular HGB Conc 34.1 GM/DL (32-36); Mean Corpuscular Hemoglobin 31 PG (27-34); Mean Corpuscular Volume 91.9 FL (87-102); Mean Platelet Volume 10.1 FL (9.6-12.0); Monocytes # 0.3 10*3/uL (0.11-0.8); Monocytes % 6.3 % (1.7-12.7); Neutrophils # 3.6 10*3/uL (1.4-7.4); Neutrophils % 71.9 % (38.7-73.9); Platelet Count 227 T/CUMM (130-400); White Blood Count 5.1 T/CUMM (4-12)
[2018-02-11 13:57] LABS: Albumin 2.8 G/DL (3.4-5.0); Bilirubin,Total 0.8 MG/DL (0.2-1.0); Calcium 9.8 MG/DL (8.5-10.1); Osmolality,Calculated 282.3 MOS/KG (273-304); Potassium 3.8 MMOL/L (3.5-5.1); Total Protein 7.9 G/DL (6.4-8.3)
[2018-02-11] MEDS ORDERED: SODIUM CHLORIDE 0.9% 500 ML IV STA (14:35)
[2018-02-11 14:40] LABS: Troponin I Only < 0.015 NG/ML (0.00-0.045)
[2018-02-11] MEDS ORDERED: CEFEPIME 1,000 MG in SODIUM CHLORIDE 0.9% 100 ML IV STA (14:44)
[2018-02-11] MEDS ORDERED: ONDANSETRON 4 MG/2 ML VIAL IV PRN (15:32)
[2018-02-11] MEDS ORDERED: ACETAMINOPHEN 325 MG TABLET PO PRN (15:32)
[2018-02-11] MEDS ORDERED: DEXTROSE 50% 25 GM/50 ML VIAL IV PRN (16:00)
[2018-02-11] MEDS ORDERED: GLUCAGON 1 MG VIAL IM PRN (16:00)
[2018-02-11] MEDS: GABAPENTIN 100 MG CAPSULE PO SCH ×2 (18:44→23:30)
[2018-02-11] MEDS: INSULIN LISPRO 100 UNIT/ML SUBCUT SCH ×2 (18:44→21:37)
[2018-02-11] MEDS: DOCUSATE/SENNA 50-8.6 MG TABLET PO SCH (21:36)
[2018-02-11] MEDS: CARVEDILOL 6.25 MG TABLET PO SCH (21:37)
[2018-02-12 05:48] LABS: Basophils % 0.5 % (0.0-0.8); Eosinophils # 0.1 10*3/uL (0.0-0.87); Eosinophils % 1.8 % (0.00-10.9); Hematocrit 30.5 VOL% (35.7-47.0); Hemoglobin 10.4 GM/DL (12.0-16.0); Immature Granulocytes % 0.2 %; Immature Granulocytes Absolute 0.01 #; Lymphocytes # 1.2 10*3/uL (1.4-4.0); Lymphocytes % 28.5 % (21.3-54.2); Mean Corpuscular HGB Conc 34.1 GM/DL (32-36); Mean Corpuscular Hemoglobin 32 PG (27-34); Mean Corpuscular Volume 93.3 FL (87-102); Mean Platelet Volume 10.1 FL (9.6-12.0); Monocytes # 0.4 10*3/uL (0.11-0.8); Monocytes % 8.3 % (1.7-12.7); Neutrophils # 2.6 10*3/uL (1.4-7.4); Neutrophils % 60.7 % (38.7-73.9); Platelet Count 176 T/CUMM (130-400); Red Blood Count 3.27 MC/CUMM (3.8-5.5); Red Cell Distribution Width 14.1 % (9.3-17.3); White Blood Count 4.4 T/CUMM (4-12)
[2018-02-12 06:12] LABS: Calcium 9.2 MG/DL (8.5-10.1); Osmolality,Calculated 288.7 MOS/KG (273-304); Potassium 3.9 MMOL/L (3.5-5.1); Risk Ratio 3.26; VLDL CHOLESTEROL 23.4 MG/DL
[2018-02-12 06:15] LABS: Eosinophils 2 % (0-10); Lymphocytes 24 % (20-55); Segmented Neutrophils 67 % (50-85); Total Cells Counted 100
[2018-02-12 06:16] LABS: Hypochromasia Slight; Microcytosis Slight; Ovalocytes Slight; Platelet Estimate Adequate
[2018-02-12 06:17] LABS: Free T4 (Free Thyroxine) 1.51 NG/DL (0.76-1.46); Thyroid Stimulating Hormone 0.123 uIU/ml (0.358-3.74)
[2018-02-12] MEDS ORDERED: LEVOTHYROXINE 100 MCG TABLET PO SCH (06:30)
[2018-02-12] MEDS: INSULIN LISPRO 100 UNIT/ML SUBCUT SCH ×4 (08:23→21:52)
[2018-02-12] MEDS: cefTRIAXone 1,000 MG in SYRINGE 1 EACH IV SCH (09:47)
[2018-02-12] MEDS: ASPIRIN EC 81 MG TABLET PO SCH (10:05)
[2018-02-12] MEDS: GABAPENTIN 100 MG CAPSULE PO SCH ×2 (10:05→16:38)
[2018-02-12] MEDS: CARVEDILOL 6.25 MG TABLET PO SCH ×2 (10:06→22:03)
[2018-02-12] MEDS: DOCUSATE/SENNA 50-8.6 MG TABLET PO SCH ×2 (10:06→22:03)
[2018-02-12] MEDS: LISINOPRIL 20 MG TABLET PO SCH (10:06)
[2018-02-12] MEDS: PANTOPRAZOLE 40 MG TABLET PO SCH (10:06)
[2018-02-12] MEDS: CLOPIDOGREL 75 MG TABLET PO SCH (10:06)
[2018-02-12] MEDS: MORPHINE 4 MG/1 ML VIAL IV PRN (15:45)
[2018-02-13] MEDS: GABAPENTIN 100 MG CAPSULE PO SCH ×3 (01:31→17:49)
[2018-02-13 05:52] LABS: Basophils % 0.2 % (0.0-0.8); Eosinophils # 0.1 10*3/uL (0.0-0.87); Eosinophils % 1.9 % (0.00-10.9); Hematocrit 30.4 VOL% (35.7-47.0); Hemoglobin 9.9 GM/DL (12.0-16.0); Immature Granulocytes % 0.2 %; Immature Granulocytes Absolute 0.01 #; Lymphocytes # 1.1 10*3/uL (1.4-4.0); Lymphocytes % 26.5 % (21.3-54.2); Mean Corpuscular HGB Conc 32.6 GM/DL (32-36); Mean Corpuscular Hemoglobin 32 PG (27-34); Mean Corpuscular Volume 97.1 FL (87-102); Mean Platelet Volume 9.9 FL (9.6-12.0); Monocytes # 0.3 10*3/uL (0.11-0.8); Monocytes % 8.3 % (1.7-12.7); Neutrophils # 2.6 10*3/uL (1.4-7.4); Neutrophils % 62.9 % (38.7-73.9); Platelet Count 142 T/CUMM (130-400); Red Blood Count 3.13 MC/CUMM (3.8-5.5); Red Cell Distribution Width 14.2 % (9.3-17.3); White Blood Count 4.1 T/CUMM (4-12)
[2018-02-13 06:16] LABS: Calcium 9.5 MG/DL (8.5-10.1); Osmolality,Calculated 291.7 MOS/KG (273-304)
[2018-02-13 06:19] LABS: Band Neutrophils 7 % (0-10); Lymphocytes 23 % (20-55); Segmented Neutrophils 66 % (50-85); Total Cells Counted 100
[2018-02-13 06:22] LABS: Anisocytosis 1+; Ovalocytes 1+; Poikilocytosis 1+
[2018-02-13] MEDS: LEVOTHYROXINE 88 MCG TABLET PO SCH (07:48)
[2018-02-13] MEDS: ASPIRIN EC 81 MG TABLET PO SCH (09:44)
[2018-02-13] MEDS: INSULIN LISPRO 100 UNIT/ML SUBCUT SCH ×4 (09:44→22:11)
[2018-02-13] MEDS: PANTOPRAZOLE 40 MG TABLET PO SCH (09:45)
[2018-02-13] MEDS: CARVEDILOL 6.25 MG TABLET PO SCH ×2 (09:45→22:09)
[2018-02-13] MEDS: DOCUSATE/SENNA 50-8.6 MG TABLET PO SCH ×2 (09:45→22:09)
[2018-02-13] MEDS: LISINOPRIL 20 MG TABLET PO SCH (09:45)
[2018-02-13] MEDS: CLOPIDOGREL 75 MG TABLET PO SCH (09:45)
[2018-02-13] MEDS: MORPHINE 4 MG/1 ML VIAL IV PRN (10:02)
[2018-02-13] MEDS: cefTRIAXone 1,000 MG in SYRINGE 1 EACH IV SCH (10:02)
[2018-02-13] MEDS ORDERED: FLUCONAZOLE 200 MG TABLET PO SCH (13:00)
[2018-02-13] MEDS: FLUCONAZOLE INJ 200 MG in PREMIX 1 EACH IV SCH (14:51)
[2018-02-14] MEDS: GABAPENTIN 100 MG CAPSULE PO SCH ×3 (00:33→18:06)
[2018-02-14 05:46] LABS: Basophils % 0.5 % (0.0-0.8); Eosinophils # 0.1 10*3/uL (0.0-0.87); Eosinophils % 2.2 % (0.00-10.9); Hematocrit 28.1 VOL% (35.7-47.0); Hemoglobin 9.3 GM/DL (12.0-16.0); Lymphocytes # 0.9 10*3/uL (1.4-4.0); Lymphocytes % 22.5 % (21.3-54.2); Mean Corpuscular HGB Conc 33.1 GM/DL (32-36); Mean Corpuscular Hemoglobin 31 PG (27-34); Mean Corpuscular Volume 94.3 FL (87-102); Mean Platelet Volume 10.1 FL (9.6-12.0); Monocytes # 0.3 10*3/uL (0.11-0.8); Monocytes % 7.7 % (1.7-12.7); Neutrophils # 2.8 10*3/uL (1.4-7.4); Neutrophils % 67.1 % (38.7-73.9); Platelet Count 151 T/CUMM (130-400); Red Blood Count 2.98 MC/CUMM (3.8-5.5); Red Cell Distribution Width 13.9 % (9.3-17.3); White Blood Count 4.2 T/CUMM (4-12)
[2018-02-14 06:12] LABS: Calcium 9.6 MG/DL (8.5-10.1); Osmolality,Calculated 293.7 MOS/KG (273-304); Potassium 4.1 MMOL/L (3.5-5.1)
[2018-02-14 06:40] LABS: Band Neutrophils 3 % (0-10); Eosinophils 1 % (0-10); Hypochromasia 1+; Lymphocytes 19 % (20-55); Microcytosis Slight; Ovalocytes Slight; Platelet Estimate Adequate; Segmented Neutrophils 70 % (50-85); Total Cells Counted 100
[2018-02-14] MEDS: LEVOTHYROXINE 88 MCG TABLET PO SCH (07:54)
[2018-02-14] MEDS: FLUCONAZOLE INJ 200 MG in PREMIX 1 EACH IV SCH (08:26)
[2018-02-14] MEDS: cefTRIAXone 1,000 MG in SYRINGE 1 EACH IV SCH (08:26)
[2018-02-14] MEDS: MORPHINE 4 MG/1 ML VIAL IV PRN ×2 (08:33→15:00)
[2018-02-14] MEDS: INSULIN LISPRO 100 UNIT/ML SUBCUT SCH ×4 (08:36→18:07)
[2018-02-14] MEDS: PANTOPRAZOLE 40 MG TABLET PO SCH (08:37)
[2018-02-14] MEDS: LISINOPRIL 20 MG TABLET PO SCH (08:37)
[2018-02-14] MEDS: ASPIRIN EC 81 MG TABLET PO SCH (08:37)
[2018-02-14] MEDS: CLOPIDOGREL 75 MG TABLET PO SCH (08:37)
[2018-02-14] MEDS: CARVEDILOL 6.25 MG TABLET PO SCH ×2 (08:37→20:53)
[2018-02-14] MEDS: DOCUSATE/SENNA 50-8.6 MG TABLET PO SCH ×2 (08:37→20:53)
[2018-02-15] MEDS: INSULIN LISPRO 100 UNIT/ML SUBCUT SCH ×4 (00:40→17:33)
[2018-02-15] MEDS: GABAPENTIN 100 MG CAPSULE PO SCH ×3 (00:46→17:24)
[2018-02-15 04:12] LABS: Basophils % 0.4 % (0.0-0.8); Eosinophils % 0.6 % (0.00-10.9); Hematocrit 27.9 VOL% (35.7-47.0); Hemoglobin 9.3 GM/DL (12.0-16.0); Immature Granulocytes % 0.4 %; Immature Granulocytes Absolute 0.02 #; Lymphocytes # 0.9 10*3/uL (1.4-4.0); Lymphocytes % 16.5 % (21.3-54.2); Mean Corpuscular HGB Conc 33.3 GM/DL (32-36); Mean Corpuscular Hemoglobin 32 PG (27-34); Mean Corpuscular Volume 95.5 FL (87-102); Mean Platelet Volume 10.8 FL (9.6-12.0); Monocytes # 0.5 10*3/uL (0.11-0.8); Monocytes % 9.4 % (1.7-12.7); Neutrophils # 3.9 10*3/uL (1.4-7.4); Neutrophils % 72.7 % (38.7-73.9); Platelet Count 148 T/CUMM (130-400); Red Blood Count 2.92 MC/CUMM (3.8-5.5); Red Cell Distribution Width 14.2 % (9.3-17.3); White Blood Count 5.4 T/CUMM (4-12)
[2018-02-15 04:23] LABS: Calcium 9.3 MG/DL (8.5-10.1); Osmolality,Calculated 298.6 MOS/KG (273-304); Potassium 4.2 MMOL/L (3.5-5.1)
[2018-02-15] MEDS: LEVOTHYROXINE 88 MCG TABLET PO SCH (05:55)
[2018-02-15] MEDS ORDERED: MAGNESIUM SULFATE 2 GM/50 ML PREMIX IV ONE (08:00)
[2018-02-15] MEDS: FLUCONAZOLE INJ 200 MG in PREMIX 1 EACH IV SCH (09:22)
[2018-02-15] MEDS ORDERED: SODIUM CHLORIDE 0.9% 500 ML IV ONE (09:48)
[2018-02-15] MEDS: LISINOPRIL 20 MG TABLET PO SCH (09:51)
[2018-02-15] MEDS: PANTOPRAZOLE 40 MG TABLET PO SCH (09:51)
[2018-02-15] MEDS: DOCUSATE/SENNA 50-8.6 MG TABLET PO SCH ×2 (09:52→21:28)
[2018-02-15] MEDS: CARVEDILOL 6.25 MG TABLET PO SCH ×2 (09:52→21:28)
[2018-02-16] MEDS: INSULIN LISPRO 100 UNIT/ML SUBCUT SCH ×4 (00:50→18:23)
[2018-02-16] MEDS: GABAPENTIN 100 MG CAPSULE PO SCH ×3 (00:50→18:24)
[2018-02-16 08:34] LABS: Basophils % 0.2 % (0.0-0.8); Eosinophils # 0.1 10*3/uL (0.0-0.87); Eosinophils % 1.2 % (0.00-10.9); Hematocrit 27.8 VOL% (35.7-47.0); Hemoglobin 9.2 GM/DL (12.0-16.0); Immature Granulocytes % 0.2 %; Immature Granulocytes Absolute 0.01 #; Lymphocytes # 0.8 10*3/uL (1.4-4.0); Lymphocytes % 15.8 % (21.3-54.2); Mean Corpuscular HGB Conc 33.1 GM/DL (32-36); Mean Corpuscular Hemoglobin 31 PG (27-34); Mean Corpuscular Volume 94.9 FL (87-102); Mean Platelet Volume 10.1 FL (9.6-12.0); Monocytes # 0.3 10*3/uL (0.11-0.8); Monocytes % 6.8 % (1.7-12.7); Neutrophils # 3.7 10*3/uL (1.4-7.4); Neutrophils % 75.8 % (38.7-73.9); Platelet Count 134 T/CUMM (130-400); Red Blood Count 2.93 MC/CUMM (3.8-5.5); Red Cell Distribution Width 14.2 % (9.3-17.3); White Blood Count 4.9 T/CUMM (4-12)
[2018-02-16] MEDS: CARVEDILOL 6.25 MG TABLET PO SCH ×2 (09:07→22:05)
[2018-02-16] MEDS: LISINOPRIL 20 MG TABLET PO SCH (09:07)
[2018-02-16] MEDS: LEVOTHYROXINE 88 MCG TABLET PO SCH (09:07)
[2018-02-16] MEDS: PANTOPRAZOLE 40 MG TABLET PO SCH (09:07)
[2018-02-16] MEDS: DOCUSATE/SENNA 50-8.6 MG TABLET PO SCH ×2 (09:07→22:04)
[2018-02-16] MEDS: FLUCONAZOLE INJ 200 MG in PREMIX 1 EACH IV SCH (09:08)
[2018-02-16 10:19] LABS: Hypochromasia 1+; Polychromasia Slight
[2018-02-16] MEDS ORDERED: METOCLOPRAMIDE 10 MG/2 ML VIAL IM SCH (13:00)
[2018-02-16] MEDS ORDERED: METOCLOPRAMIDE 10 MG/2 ML VIAL IV PRN (14:52)
[2018-02-16] MEDS ORDERED: PYRIDOSTIGMINE 10 MG/2 ML IV SCH (18:00)
[2018-02-16] MEDS: HALOPERIDOL 5 MG/ML AMP IV PRN (22:05)
[2018-02-17] MEDS: GABAPENTIN 100 MG CAPSULE PO SCH ×3 (01:28→16:30)
[2018-02-17] MEDS: INSULIN LISPRO 100 UNIT/ML SUBCUT SCH ×4 (01:29→18:24)
[2018-02-17] MEDS: HALOPERIDOL 5 MG/ML AMP IV PRN (04:55)
[2018-02-17] MEDS: LEVOTHYROXINE 88 MCG TABLET PO SCH (05:47)
[2018-02-17 06:07] LABS: Calcium 9.1 MG/DL (8.5-10.1); Osmolality,Calculated 288.1 MOS/KG (273-304); Potassium 3.8 MMOL/L (3.5-5.1); Prealbumin 7.7 MG/DL (20-40)
[2018-02-17] MEDS: FLUCONAZOLE INJ 200 MG in PREMIX 1 EACH IV SCH (08:42)
[2018-02-17] MEDS: LISINOPRIL 20 MG TABLET PO SCH (08:43)
[2018-02-17] MEDS: DOCUSATE/SENNA 50-8.6 MG TABLET PO SCH ×2 (08:43→22:33)
[2018-02-17] MEDS: CARVEDILOL 6.25 MG TABLET PO SCH ×2 (08:43→22:33)
[2018-02-17] MEDS: PANTOPRAZOLE 40 MG TABLET PO SCH (08:43)
[2018-02-17] MEDS ORDERED: MAGNESIUM SULF RIDER 2 GM in PREMIX 1 EACH IV ONE (14:00)
[2018-02-17] MEDS ORDERED: METOCLOPRAMIDE 10 MG/2 ML VIAL IV PRN (16:13)
[2018-02-18] MEDS: INSULIN LISPRO 100 UNIT/ML SUBCUT SCH ×2 (01:34→06:04)
[2018-02-18] MEDS: GABAPENTIN 100 MG CAPSULE PO SCH ×2 (01:36→09:42)
[2018-02-18 05:48] LABS: Basophils % 0.3 % (0.0-0.8); Eosinophils # 0.1 10*3/uL (0.0-0.87); Hematocrit 27.5 VOL% (35.7-47.0); Hemoglobin 9.3 GM/DL (12.0-16.0); Immature Granulocytes % 0.3 %; Immature Granulocytes Absolute 0.01 #; Lymphocytes # 0.8 10*3/uL (1.4-4.0); Lymphocytes % 20.5 % (21.3-54.2); Mean Corpuscular HGB Conc 33.8 GM/DL (32-36); Mean Corpuscular Hemoglobin 32 PG (27-34); Mean Corpuscular Volume 93.9 FL (87-102); Monocytes # 0.2 10*3/uL (0.11-0.8); Monocytes % 6.3 % (1.7-12.7); Neutrophils # 2.6 10*3/uL (1.4-7.4); Neutrophils % 69.6 % (38.7-73.9); Platelet Count 124 T/CUMM (130-400); Red Blood Count 2.93 MC/CUMM (3.8-5.5); Red Cell Distribution Width 14.1 % (9.3-17.3); White Blood Count 3.7 T/CUMM (4-12)
[2018-02-18 06:20] LABS: Calcium 8.8 MG/DL (8.5-10.1)
[2018-02-18 06:21] LABS: Band Neutrophils 1 % (0-10); Eosinophils 5 % (0-10); Lymphocytes 17 % (20-55); Segmented Neutrophils 71 % (50-85); Total Cells Counted 100
[2018-02-18 06:22] LABS: Hypochromasia 1+; Ovalocytes Slight; Platelet Estimate Decreased
[2018-02-18] MEDS: LEVOTHYROXINE 88 MCG TABLET PO SCH (07:05)
[2018-02-18] MEDS: DOCUSATE/SENNA 50-8.6 MG TABLET PO SCH (09:41)
[2018-02-18] MEDS: LISINOPRIL 20 MG TABLET PO SCH (09:41)
[2018-02-18] MEDS: PANTOPRAZOLE 40 MG TABLET PO SCH (09:42)
[2018-02-18] MEDS: CARVEDILOL 6.25 MG TABLET PO SCH (09:42)
[2018-02-18] MEDS: FLUCONAZOLE INJ 200 MG in PREMIX 1 EACH IV SCH (09:48)
[2018-02-18] MEDS ORDERED: INSULIN LISPRO 100 UNIT/ML SUBCUT SCH (11:30)
[2018-02-18 11:58] VITALS: BP 157/78
== END 2018-02-18 16:29 | disposition home or self-care (01) | DRG 757 ==
LOC: EDBD → EDUNIT# → N.ED 12:25 → N.EDINP 15:20 → SUATTDRO 15:20 → N.EDINP 18:17 → N.2E 18:18
PROVIDERS: ADMIT Internal Medicine; ATTEND Internal Medicine

== ENCOUNTER 2018-05-07 15:43 | Inpatient (IN) ==
[2018-05-07] MEDS ORDERED: SODIUM CHLORIDE 0.9% 1,450 ML IV ONE (16:38)
[2018-05-07 17:12] LABS: Eosinophils % 0.2 % (0.00-10.9); Immature Granulocytes % 0.3 %; Immature Granulocytes Absolute 0.02 #; Platelet Count 108 T/CUMM (130-400); Red Cell Distribution Width 12.4 % (9.3-17.3)
[2018-05-07 17:21] LABS: Apearance,Urine CLOUDY (Clear); Bacteria,Urine Occasional /HPF (Few); Bilirubin,Urine Negative (Negative); Blood, Urine Negative (Negative); Glucose,Urine (UA) >=500 mg/dL (Negative); Ketones,Urine Negative (Negative); Nitrite,Urine Negative (Negative); Protein,Urine 30 MG/DL; RBC,Urine 4 /HPF (0-4); Urine Color Yellow (Yellow); Urine Specific Gravity 1.016 (1.001-1.035); WBC,Urine 68 /HPF (0-6)
[2018-05-07 17:24] LABS: INR 1.1; PT Patient Result 11.5 SECS
[2018-05-07 17:35] LABS: Albumin 2.8 G/DL (3.4-5.0); Bilirubin,Total 0.6 MG/DL (0.2-1.0); Calcium 9.4 MG/DL (8.5-10.1); Osmolality,Calculated 362.9 MOS/KG (273-304); Potassium 4.2 MMOL/L (3.5-5.1); Prealbumin 18.8 MG/DL (20-40); Total Protein 7.8 G/DL (6.4-8.3)
[2018-05-07 17:37] LABS: Basophils % 0.3 % (0.0-0.8); Hematocrit 48.8 VOL% (35.7-47.0); Lymphocytes # 1.7 10*3/uL (1.4-4.0); Mean Corpuscular HGB Conc 30.7 GM/DL (32-36); Mean Corpuscular Hemoglobin 32 PG (27-34); Mean Corpuscular Volume 103.2 FL (87-102); Mean Platelet Volume 13.2 FL (9.6-12.0); Monocytes # 0.2 10*3/uL (0.11-0.8); Monocytes % 3.3 % (1.7-12.7); Neutrophils # 4.5 10*3/uL (1.4-7.4); Neutrophils % 69.9 % (38.7-73.9); Red Blood Count 4.73 MC/CUMM (3.8-5.5); White Blood Count 6.4 T/CUMM (4-12)
[2018-05-07] MEDS ORDERED: cefTRIAXone 2,000 MG in SODIUM CHLORIDE 0.9% 100 ML IV ONE (17:46)
[2018-05-07] MEDS ORDERED: cefTRIAXone 1,000 MG VIAL ONE (17:48)
[2018-05-07] MEDS ORDERED: DEXTROSE 50% 25 GM/50 ML VIAL IV PRN (18:02)
[2018-05-07] MEDS ORDERED: GLUCAGON 1 MG VIAL IM PRN (18:02)
[2018-05-07] MEDS ORDERED: ONDANSETRON 4 MG/2 ML VIAL IV PRN (18:02)
[2018-05-07] MEDS ORDERED: INSULIN REGULAR 100 UNIT/ML IV STA (18:05)
[2018-05-07] MEDS: INSULIN GLARGINE 100 UNIT/ML SUBCUT SCH (21:23)
[2018-05-07] MEDS: INSULIN REGULAR 100 UNIT/ML SUBCUT SCH (21:24)
[2018-05-07] MEDS: ENOXAPARIN 40 MG/0.4 ML SYRINGE SUBCUT SCH (21:25)
[2018-05-08] MEDS: SODIUM CHLORIDE 23.4% CONC INJ 38.5 MEQ in STERILE WATER INJ 1,000 ML IV SCH ×3 (01:19→11:23)
[2018-05-08 04:59] LABS: Basophils % 0.3 % (0.0-0.8); Eosinophils % 0.2 % (0.00-10.9); Hematocrit 41.2 VOL% (35.7-47.0); Immature Granulocytes % 0.3 %; Immature Granulocytes Absolute 0.02 #; Lymphocytes # 1.6 10*3/uL (1.4-4.0); Mean Corpuscular HGB Conc 31.1 GM/DL (32-36); Mean Corpuscular Hemoglobin 31 PG (27-34); Mean Platelet Volume 13.1 FL (9.6-12.0); Monocytes # 0.3 10*3/uL (0.11-0.8); Monocytes % 3.8 % (1.7-12.7); Neutrophils # 4.7 10*3/uL (1.4-7.4); Neutrophils % 71.4 % (38.7-73.9); Red Blood Count 4.08 MC/CUMM (3.8-5.5); Red Cell Distribution Width 12.4 % (9.3-17.3); White Blood Count 6.6 T/CUMM (4-12)
[2018-05-08 05:04] LABS: Hemoglobin 12.8 GM/DL (12.0-16.0); Platelet Count 84 T/CUMM (130-400)
[2018-05-08 05:23] LABS: Calcium 9.2 MG/DL (8.5-10.1); Osmolality,Calculated 351.5 MOS/KG (273-304); Potassium 3.7 MMOL/L (3.5-5.1)
[2018-05-08 05:37] LABS: Folate > 24.0 NG/ML (5.4-24.0); Vitamin B12 701 PG/ML (211-911)
[2018-05-08 05:48] LABS: Platelet Estimate Decreased
[2018-05-08] MEDS: LEVOTHYROXINE 100 MCG TABLET PO SCH (06:28)
[2018-05-08] MEDS: INSULIN REGULAR 100 UNIT/ML SUBCUT SCH ×4 (08:09→21:01)
[2018-05-08] MEDS: ASPIRIN EC 81 MG TABLET PO SCH ×2 (09:27→10:36)
[2018-05-08] MEDS: PANTOPRAZOLE 40 MG TABLET PO SCH ×2 (09:27→10:36)
[2018-05-08] MEDS: LISINOPRIL 20 MG TABLET PO SCH ×2 (09:27→10:37)
[2018-05-08] MEDS: CLOPIDOGREL 75 MG TABLET PO SCH ×2 (09:27→10:37)
[2018-05-08] MEDS: DEXTROSE 5% 1,000 ML IV SCH ×2 (10:37→23:59)
[2018-05-08] MEDS: cefTRIAXone 1,000 MG in SYRINGE 1 EACH IV SCH (17:01)
[2018-05-08] MEDS: INSULIN GLARGINE 100 UNIT/ML SUBCUT SCH (21:00)
[2018-05-08] MEDS: ENOXAPARIN 40 MG/0.4 ML SYRINGE SUBCUT SCH (21:00)
[2018-05-08] MEDS ORDERED: INSULIN REGULAR 100 UNIT/ML SUBCUT ONE (23:50)
[2018-05-09] MEDS: LEVOTHYROXINE 100 MCG TABLET PO SCH ×2 (06:18→06:25)
[2018-05-09] MEDS: PANTOPRAZOLE 40 MG TABLET PO SCH (09:16)
[2018-05-09] MEDS: CLOPIDOGREL 75 MG TABLET PO SCH (09:16)
[2018-05-09] MEDS: LISINOPRIL 20 MG TABLET PO SCH (09:16)
[2018-05-09] MEDS: INSULIN REGULAR 100 UNIT/ML SUBCUT SCH ×5 (09:16→23:53)
[2018-05-09] MEDS: ASPIRIN EC 81 MG TABLET PO SCH (09:17)
[2018-05-09 09:20] LABS: Basophils % 0.2 % (0.0-0.8); Eosinophils # 0.1 10*3/uL (0.0-0.87); Eosinophils % 1.4 % (0.00-10.9); Hematocrit 33.6 VOL% (35.7-47.0); Hemoglobin 10.9 GM/DL (12.0-16.0); Immature Granulocytes % 0.5 %; Immature Granulocytes Absolute 0.03 #; Lymphocytes # 1.3 10*3/uL (1.4-4.0); Lymphocytes % 22.4 % (21.3-54.2); Mean Corpuscular HGB Conc 32.4 GM/DL (32-36); Mean Corpuscular Hemoglobin 31 PG (27-34); Mean Corpuscular Volume 96.6 FL (87-102); Mean Platelet Volume 14.3 FL (9.6-12.0); Monocytes # 0.2 10*3/uL (0.11-0.8); Monocytes % 3.1 % (1.7-12.7); Neutrophils # 4.2 10*3/uL (1.4-7.4); Neutrophils % 72.4 % (38.7-73.9); Platelet Count 62 T/CUMM (130-400); Red Blood Count 3.48 MC/CUMM (3.8-5.5); Red Cell Distribution Width 12.4 % (9.3-17.3); White Blood Count 5.9 T/CUMM (4-12)
[2018-05-09 09:38] LABS: Calcium 8.1 MG/DL (8.5-10.1); Osmolality,Calculated 329.6 MOS/KG (273-304); Potassium 3.6 MMOL/L (3.5-5.1)
[2018-05-09 09:40] LABS: Anisocytosis 1+; Band Neutrophils 5 % (0-10); Eosinophils 1 % (0-10); Lymphocytes 19 % (20-55); Platelet Estimate Decreased; Segmented Neutrophils 72 % (50-85); Total Cells Counted 100
[2018-05-09] MEDS ORDERED: SKIN HEALING OINT (AQUAPHOR) 50 GM TUBE TOP PRN (15:00)
[2018-05-09] MEDS: DEXTROSE 5% 1,000 ML IV SCH (17:27)
[2018-05-09] MEDS: cefTRIAXone 1,000 MG in SYRINGE 1 EACH IV SCH (17:28)
[2018-05-09] MEDS: TAMSULOSIN 0.4 MG CAPSULE PO SCH (21:09)
[2018-05-09] MEDS: INSULIN GLARGINE 100 UNIT/ML SUBCUT SCH (21:09)
[2018-05-09] MEDS: ENOXAPARIN 40 MG/0.4 ML SYRINGE SUBCUT SCH (21:10)
[2018-05-10] MEDS: DEXTROSE 5% 1,000 ML IV SCH (04:41)
[2018-05-10] MEDS: LEVOTHYROXINE 100 MCG TABLET PO SCH (06:18)
[2018-05-10 06:40] LABS: Basophils % 0.2 % (0.0-0.8); Eosinophils # 0.1 10*3/uL (0.0-0.87); Eosinophils % 1.6 % (0.00-10.9); Hematocrit 31.6 VOL% (35.7-47.0); Hemoglobin 10.3 GM/DL (12.0-16.0); Immature Granulocytes % 0.7 %; Immature Granulocytes Absolute 0.03 #; Lymphocytes # 0.8 10*3/uL (1.4-4.0); Lymphocytes % 19.2 % (21.3-54.2); Mean Corpuscular HGB Conc 32.6 GM/DL (32-36); Mean Corpuscular Hemoglobin 31 PG (27-34); Mean Corpuscular Volume 95.5 FL (87-102); Mean Platelet Volume 14.2 FL (9.6-12.0); Monocytes # 0.1 10*3/uL (0.11-0.8); Monocytes % 3.2 % (1.7-12.7); Neutrophils # 3.2 10*3/uL (1.4-7.4); Neutrophils % 75.1 % (38.7-73.9); Platelet Count 63 T/CUMM (130-400); Red Blood Count 3.31 MC/CUMM (3.8-5.5); Red Cell Distribution Width 12.1 % (9.3-17.3); White Blood Count 4.3 T/CUMM (4-12)
[2018-05-10 06:48] LABS: Calcium 7.9 MG/DL (8.5-10.1); Osmolality,Calculated 313.1 MOS/KG (273-304)
[2018-05-10 07:20] LABS: Band Neutrophils 3 % (0-10); Lymphocytes 25 % (20-55); Macrocytosis 2+; Platelet Estimate Decreased; Segmented Neutrophils 71 % (50-85); Total Cells Counted 100
[2018-05-10 08:10] LABS: Apearance,Urine CLOUDY (Clear); Bilirubin,Urine Negative (Negative); Blood, Urine Moderate mg/dL (Negative); Glucose,Urine (UA) Negative (Negative); Ketones,Urine Negative (Negative); Nitrite,Urine Negative (Negative); Protein,Urine Negative; RBC,Urine 2 /HPF (0-4); Urine Color Yellow (Yellow); Urine Specific Gravity 1.006 (1.001-1.035); Urine Urobilinogen < 2.0 EU/DL (0.2-1.0); WBC,Urine 287 /HPF (0-6)
[2018-05-10] MEDS ORDERED: traMADol 50 MG TABLET PO PRN (08:20)
[2018-05-10] MEDS: INSULIN REGULAR 100 UNIT/ML SUBCUT SCH ×4 (09:09→21:10)
[2018-05-10] MEDS: PANTOPRAZOLE 40 MG TABLET PO SCH (09:10)
[2018-05-10] MEDS: SODIUM CHLORIDE 0.45% 1,000 ML IV SCH (09:10)
[2018-05-10] MEDS: ASPIRIN EC 81 MG TABLET PO SCH (09:10)
[2018-05-10] MEDS: CLOPIDOGREL 75 MG TABLET PO SCH (09:10)
[2018-05-10] MEDS: LISINOPRIL 20 MG TABLET PO SCH (09:10)
[2018-05-10] MEDS: ACETAMINOPHEN 325 MG TABLET PO PRN (11:28)
[2018-05-10] MEDS: FLUCONAZOLE INJ 200 MG in PREMIX 1 EACH IV SCH (14:12)
[2018-05-10] MEDS: cefTRIAXone 1,000 MG in SYRINGE 1 EACH IV SCH (18:15)
[2018-05-10] MEDS: INSULIN GLARGINE 100 UNIT/ML SUBCUT SCH (21:11)
[2018-05-10] MEDS: TAMSULOSIN 0.4 MG CAPSULE PO SCH (21:11)
[2018-05-10] MEDS: ENOXAPARIN 40 MG/0.4 ML SYRINGE SUBCUT SCH (21:12)
[2018-05-11 02:14] LABS: Eosinophils # 0.1 10*3/uL (0.0-0.87); Eosinophils % 2.3 % (0.00-10.9); Hematocrit 27.4 VOL% (35.7-47.0); Immature Granulocytes % 0.3 %; Immature Granulocytes Absolute 0.01 #; Lymphocytes # 0.6 10*3/uL (1.4-4.0); Mean Corpuscular HGB Conc 32.8 GM/DL (32-36); Mean Corpuscular Hemoglobin 31 PG (27-34); Mean Corpuscular Volume 94.5 FL (87-102); Mean Platelet Volume 14.3 FL (9.6-12.0); Monocytes # 0.2 10*3/uL (0.11-0.8); Monocytes % 5.6 % (1.7-12.7); Neutrophils # 2.2 10*3/uL (1.4-7.4); Neutrophils % 72.8 % (38.7-73.9); Platelet Count 54 T/CUMM (130-400); Red Cell Distribution Width 12.1 % (9.3-17.3); White Blood Count 3.1 T/CUMM (4-12)
[2018-05-11 02:45] LABS: Calcium 8.2 MG/DL (8.5-10.1); Potassium 4.1 MMOL/L (3.5-5.1)
[2018-05-11 03:39] LABS: Eosinophils 4 % (0-10); Lymphocytes 24 % (20-55); Platelet Estimate Decreased; Segmented Neutrophils 69 % (50-85); Total Cells Counted 100
[2018-05-11] MEDS: SODIUM CHLORIDE 0.45% 1,000 ML IV SCH ×2 (05:10→20:11)
[2018-05-11] MEDS: LEVOTHYROXINE 100 MCG TABLET PO SCH (06:12)
[2018-05-11] MEDS: INSULIN REGULAR 100 UNIT/ML SUBCUT SCH ×4 (09:32→20:12)
[2018-05-11] MEDS: LISINOPRIL 20 MG TABLET PO SCH (09:33)
[2018-05-11] MEDS: PANTOPRAZOLE 40 MG TABLET PO SCH (09:33)
[2018-05-11] MEDS: CLOPIDOGREL 75 MG TABLET PO SCH (09:34)
[2018-05-11] MEDS: ACETAMINOPHEN 325 MG TABLET PO PRN (09:34)
[2018-05-11] MEDS: ASPIRIN EC 81 MG TABLET PO SCH (09:35)
[2018-05-11] MEDS: FLUCONAZOLE INJ 200 MG in PREMIX 1 EACH IV SCH (17:24)
[2018-05-11] MEDS: INSULIN GLARGINE 100 UNIT/ML SUBCUT SCH (20:11)
[2018-05-11] MEDS: TAMSULOSIN 0.4 MG CAPSULE PO SCH (20:12)
[2018-05-11] MEDS: ENOXAPARIN 40 MG/0.4 ML SYRINGE SUBCUT SCH (20:13)
[2018-05-12] MEDS: LEVOTHYROXINE 100 MCG TABLET PO SCH (06:23)
[2018-05-12 06:30] LABS: Basophils % 0.4 % (0.0-0.8); Eosinophils % 1.5 % (0.00-10.9); Hematocrit 27.7 VOL% (35.7-47.0); Immature Granulocytes % 0.4 %; Immature Granulocytes Absolute 0.01 #; Lymphocytes # 0.5 10*3/uL (1.4-4.0); Lymphocytes % 19.2 % (21.3-54.2); Mean Corpuscular HGB Conc 32.5 GM/DL (32-36); Mean Corpuscular Hemoglobin 31 PG (27-34); Mean Corpuscular Volume 96.5 FL (87-102); Mean Platelet Volume 13.5 FL (9.6-12.0); Monocytes # 0.2 10*3/uL (0.11-0.8); Monocytes % 7.4 % (1.7-12.7); Neutrophils # 1.9 10*3/uL (1.4-7.4); Neutrophils % 71.1 % (38.7-73.9); Platelet Count 54 T/CUMM (130-400); Red Blood Count 2.87 MC/CUMM (3.8-5.5); Red Cell Distribution Width 12.2 % (9.3-17.3); White Blood Count 2.7 T/CUMM (4-12)
[2018-05-12 06:58] LABS: Osmolality,Calculated 311.6 MOS/KG (273-304); Potassium 4.8 MMOL/L (3.5-5.1)
[2018-05-12 07:05] LABS: Band Neutrophils 1 % (0-10); Eosinophils 2 % (0-10); Hypochromasia Slight; Lymphocytes 18 % (20-55); Macrocytosis 1+; Segmented Neutrophils 74 % (50-85); Total Cells Counted 100
[2018-05-12 07:06] LABS: Platelet Estimate Decreased
[2018-05-12] MEDS: CLOPIDOGREL 75 MG TABLET PO SCH (08:24)
[2018-05-12] MEDS: ASPIRIN EC 81 MG TABLET PO SCH (08:24)
[2018-05-12] MEDS: LISINOPRIL 20 MG TABLET PO SCH (08:24)
[2018-05-12] MEDS: INSULIN REGULAR 100 UNIT/ML SUBCUT SCH ×4 (08:24→21:27)
[2018-05-12] MEDS: PANTOPRAZOLE 40 MG TABLET PO SCH (08:24)
[2018-05-12] MEDS: FLUCONAZOLE INJ 200 MG in PREMIX 1 EACH IV SCH (14:32)
[2018-05-12] MEDS: SODIUM CHLORIDE 0.45% 1,000 ML IV SCH (21:23)
[2018-05-12] MEDS: ENOXAPARIN 40 MG/0.4 ML SYRINGE SUBCUT SCH (21:27)
[2018-05-12] MEDS: INSULIN GLARGINE 100 UNIT/ML SUBCUT SCH (21:28)
[2018-05-12] MEDS: TAMSULOSIN 0.4 MG CAPSULE PO SCH (21:32)
[2018-05-13] MEDS: LISINOPRIL 20 MG TABLET PO SCH (09:29)
[2018-05-13] MEDS: CLOPIDOGREL 75 MG TABLET PO SCH (09:29)
[2018-05-13] MEDS: PANTOPRAZOLE 40 MG TABLET PO SCH (09:29)
[2018-05-13] MEDS: LEVOTHYROXINE 100 MCG TABLET PO SCH (09:29)
[2018-05-13] MEDS: ASPIRIN EC 81 MG TABLET PO SCH (09:29)
[2018-05-13] MEDS: INSULIN REGULAR 100 UNIT/ML SUBCUT SCH ×4 (09:29→21:22)
[2018-05-13] MEDS: SODIUM CHLORIDE 0.45% 1,000 ML IV SCH (11:06)
[2018-05-13] MEDS: FLUCONAZOLE INJ 200 MG in PREMIX 1 EACH IV SCH (14:59)
[2018-05-13] MEDS: ENOXAPARIN 40 MG/0.4 ML SYRINGE SUBCUT SCH (21:11)
[2018-05-13] MEDS: INSULIN GLARGINE 100 UNIT/ML SUBCUT SCH (21:22)
[2018-05-13] MEDS: TAMSULOSIN 0.4 MG CAPSULE PO SCH (21:25)
[2018-05-14] MEDS: SODIUM CHLORIDE 0.45% 1,000 ML IV SCH ×2 (01:56→19:10)
[2018-05-14 05:30] LABS: Basophils % 0.3 % (0.0-0.8); Eosinophils % 1.1 % (0.00-10.9); Hematocrit 32.3 VOL% (35.7-47.0); Hemoglobin 10.1 GM/DL (12.0-16.0); Immature Granulocytes % 0.3 %; Immature Granulocytes Absolute 0.01 #; Lymphocytes # 1.1 10*3/uL (1.4-4.0); Lymphocytes % 29.6 % (21.3-54.2); Mean Corpuscular HGB Conc 31.3 GM/DL (32-36); Mean Corpuscular Hemoglobin 31 PG (27-34); Mean Corpuscular Volume 97.6 FL (87-102); Mean Platelet Volume 12.5 FL (9.6-12.0); Monocytes # 0.2 10*3/uL (0.11-0.8); Monocytes % 4.9 % (1.7-12.7); Neutrophils # 2.4 10*3/uL (1.4-7.4); Neutrophils % 63.8 % (38.7-73.9); Platelet Count 84 T/CUMM (130-400); Red Blood Count 3.31 MC/CUMM (3.8-5.5); Red Cell Distribution Width 12.8 % (9.3-17.3); White Blood Count 3.7 T/CUMM (4-12)
[2018-05-14 05:55] LABS: Eosinophils 2 % (0-10); Hypochromasia 1+; Lymphocytes 28 % (20-55); Platelet Estimate Decreased; Segmented Neutrophils 65 % (50-85); Total Cells Counted 100
[2018-05-14 05:56] LABS: Ovalocytes Slight
[2018-05-14 05:59] LABS: Calcium 8.4 MG/DL (8.5-10.1); Osmolality,Calculated 296.4 MOS/KG (273-304); Potassium 4.1 MMOL/L (3.5-5.1); T4 (Thyroxine) 6.5 UG/DL (4.7-13.3)
[2018-05-14] MEDS: LEVOTHYROXINE 100 MCG TABLET PO SCH (09:13)
[2018-05-14] MEDS: ASPIRIN EC 81 MG TABLET PO SCH (09:13)
[2018-05-14] MEDS: LISINOPRIL 20 MG TABLET PO SCH (09:13)
[2018-05-14] MEDS: PANTOPRAZOLE 40 MG TABLET PO SCH (09:13)
[2018-05-14] MEDS: CLOPIDOGREL 75 MG TABLET PO SCH (09:13)
[2018-05-14] MEDS: INSULIN REGULAR 100 UNIT/ML SUBCUT SCH ×4 (09:13→21:01)
[2018-05-14] MEDS: FLUCONAZOLE INJ 200 MG in PREMIX 1 EACH IV SCH (13:17)
[2018-05-14] MEDS: ENOXAPARIN 40 MG/0.4 ML SYRINGE SUBCUT SCH (21:01)
[2018-05-14] MEDS: INSULIN GLARGINE 100 UNIT/ML SUBCUT SCH (21:01)
[2018-05-14] MEDS: TAMSULOSIN 0.4 MG CAPSULE PO SCH (21:02)
[2018-05-15] MEDS: LEVOTHYROXINE 100 MCG TABLET PO SCH (09:04)
[2018-05-15] MEDS: PANTOPRAZOLE 40 MG TABLET PO SCH (09:04)
[2018-05-15] MEDS: INSULIN REGULAR 100 UNIT/ML SUBCUT SCH ×4 (09:04→20:18)
[2018-05-15] MEDS: ASPIRIN EC 81 MG TABLET PO SCH (09:05)
[2018-05-15] MEDS: SODIUM CHLORIDE 0.45% 1,000 ML IV SCH (09:05)
[2018-05-15] MEDS: LISINOPRIL 20 MG TABLET PO SCH ×3 (09:05→20:18)
[2018-05-15] MEDS: CLOPIDOGREL 75 MG TABLET PO SCH (09:05)
[2018-05-15] MEDS: FLUCONAZOLE INJ 200 MG in PREMIX 1 EACH IV SCH (13:39)
[2018-05-15 15:29] LABS: Apearance,Urine Slightly Hazy (Clear); Bilirubin,Urine Negative (Negative); Blood, Urine Negative (Negative); Glucose,Urine (UA) Negative (Negative); Ketones,Urine Negative (Negative); Mucus,Urine Occasional /LPF (Occasional); Nitrite,Urine Negative (Negative); Protein,Urine Negative; RBC,Urine 3 /HPF (0-4); Squamous Epithelial Cell,Urine Occasional /HPF (0-10); Urine Color Yellow (Yellow); Urine Specific Gravity 1.014 (1.001-1.035); WBC,Urine 31 /HPF (0-6)
[2018-05-15] MEDS: INSULIN GLARGINE 100 UNIT/ML SUBCUT SCH (20:16)
[2018-05-15] MEDS: ENOXAPARIN 40 MG/0.4 ML SYRINGE SUBCUT SCH (20:16)
[2018-05-15] MEDS: TAMSULOSIN 0.4 MG CAPSULE PO SCH (20:18)
[2018-05-16] MEDS: SODIUM CHLORIDE 0.45% 1,000 ML IV SCH ×2 (03:06→04:30)
[2018-05-16 04:08] LABS: Eosinophils # 0.1 10*3/uL (0.0-0.87); Eosinophils % 1.8 % (0.00-10.9); Hematocrit 29.8 VOL% (35.7-47.0); Hemoglobin 9.6 GM/DL (12.0-16.0); Immature Granulocytes % 0.3 %; Immature Granulocytes Absolute 0.01 #; Lymphocytes # 1.2 10*3/uL (1.4-4.0); Lymphocytes % 34.8 % (21.3-54.2); Mean Corpuscular HGB Conc 32.2 GM/DL (32-36); Mean Corpuscular Hemoglobin 31 PG (27-34); Mean Corpuscular Volume 96.1 FL (87-102); Mean Platelet Volume 12.2 FL (9.6-12.0); Monocytes # 0.2 10*3/uL (0.11-0.8); Monocytes % 5.1 % (1.7-12.7); Platelet Count 108 T/CUMM (130-400); Red Cell Distribution Width 13.3 % (9.3-17.3); White Blood Count 3.4 T/CUMM (4-12)
[2018-05-16 04:39] LABS: Osmolality,Calculated 292.4 MOS/KG (273-304)
[2018-05-16] MEDS: CLOPIDOGREL 75 MG TABLET PO SCH (08:32)
[2018-05-16] MEDS: ASPIRIN EC 81 MG TABLET PO SCH (08:32)
[2018-05-16] MEDS: PANTOPRAZOLE 40 MG TABLET PO SCH (08:32)
[2018-05-16] MEDS: LEVOTHYROXINE 100 MCG TABLET PO SCH (08:32)
[2018-05-16] MEDS: LISINOPRIL 20 MG TABLET PO SCH (08:32)
[2018-05-16] MEDS: INSULIN REGULAR 100 UNIT/ML SUBCUT SCH ×2 (08:32→11:10)
[2018-05-16 11:22] VITALS: BP 134/61
[2018-05-16] MEDS ORDERED: FLUCONAZOLE 200 MG TABLET PO ONE (14:58)
[2018-05-16] MEDS: FLUCONAZOLE INJ 200 MG in PREMIX 1 EACH IV SCH (15:18)
== END 2018-05-16 15:03 | disposition home or self-care (01) | DRG 758 ==
LOC: N.ED 15:43 → SUATTDRO 17:56 → N.EDINP 17:56 → N.4E 19:07
PROVIDERS: ADMIT Hospitalist

== ENCOUNTER 2019-08-22 06:03 | Inpatient (IN) ==
[2019-08-22] MEDS ORDERED: ONDANSETRON 4 MG/2 ML VIAL IV PRN (10:12)
[2019-08-22] MEDS ORDERED: ACETAMINOPHEN 325 MG TABLET PO PRN (10:12)
[2019-08-22 11:03] LABS: Basophils % 0.2 % (0.0-0.8); Eosinophils # 0.1 10*3/uL (0.0-0.87); Eosinophils % 1.5 % (0.00-10.9); Hemoglobin 11.8 GM/DL (12.0-16.0); Immature Granulocytes % 0.2 %; Immature Granulocytes Absolute 0.01 #; Lymphocytes # 0.8 10*3/uL (1.4-4.0); Lymphocytes % 19.1 % (21.3-54.2); Mean Corpuscular HGB Conc 31.9 GM/DL (32-36); Mean Corpuscular Volume 103.1 FL (87-102); Monocytes % 5.4 % (1.7-12.7); Neutrophils % 73.6 % (38.7-73.9); Red Blood Count 3.59 MC/CUMM (3.8-5.5); Red Cell Distribution Width 13.2 % (9.3-17.3); White Blood Count 4.1 T/CUMM (4-12)
[2019-08-22 11:03] LABS: Albumin 2.4 G/DL (3.4-5.0); Bilirubin,Total 0.4 MG/DL (0.2-1.0); Calcium 8.7 MG/DL (8.5-10.1); Osmolality,Calculated 303.7 MOS/KG (273-304); Risk Ratio 3.34; Total Protein 6.8 G/DL (6.4-8.3); VLDL CHOLESTEROL 23.6 MG/DL
[2019-08-22 11:05] LABS: Platelet Count 85 T/CUMM (130-400)
[2019-08-22 11:32] LABS: Band Neutrophils 1 % (0-10); Eosinophils 2 % (0-10); Hypochromasia Slight; Lymphocytes 24 % (20-55); Platelet Estimate Decreased; Segmented Neutrophils 62 % (50-85); Total Cells Counted 100
[2019-08-22] MEDS ORDERED: DEXTROSE 50% 25 GM/50 ML VIAL IV PRN (12:24)
[2019-08-22] MEDS ORDERED: GLUCAGON 1 MG VIAL IM PRN (12:24)
[2019-08-22 12:42] LABS: Hematocrit 36.2 VOL% (35.7-47.0); Hemoglobin 11.9 GM/DL (12.0-16.0)
[2019-08-22 13:18] LABS: Amorphous Crystals,Urine Occasional /HPF (Few); Apearance,Urine Slightly Hazy (Clear); Bilirubin,Urine Negative (Negative); Blood, Urine Negative (Negative); Glucose,Urine (UA) Negative (Negative); Hyaline Casts,Urine 8 /LPF (0-3); Ketones,Urine Negative (Negative); Mucus,Urine Occasional /LPF (Occasional); Nitrite,Urine Negative (Negative); Protein,Urine 30 MG/DL; Squamous Epithelial Cell,Urine Occasional /HPF (0-10); Urine Color Yellow (Yellow); Urine Specific Gravity 1.009 (1.001-1.035); Urine Urobilinogen < 2.0 EU/DL (0.2-1.0)
[2019-08-22] MEDS: SODIUM CHLORIDE 0.9% 1,000 ML IV SCH (14:46)
[2019-08-22] MEDS: PANTOPRAZOLE 40 MG VIAL IV SCH (14:46)
[2019-08-22] MEDS: NYSTATIN CREAM 15 GM TUBE TOP SCH (15:57)
[2019-08-22] MEDS: ZINC OXIDE PASTE 113 GM TUBE TOP SCH (15:57)
[2019-08-22] MEDS ORDERED: FUROSEMIDE 20 MG/2 ML VIAL IV ONE (17:25)
[2019-08-22 17:51] LABS: Hematocrit 36.2 VOL% (35.7-47.0); Hemoglobin 11.6 GM/DL (12.0-16.0)
[2019-08-22] MEDS: INSULIN REGULAR 100 UNIT/ML SUBCUT SCH (18:01)
[2019-08-22 23:46] LABS: Hematocrit 32.5 VOL% (35.7-47.0); Hemoglobin 10.5 GM/DL (12.0-16.0)
[2019-08-23] MEDS: SODIUM CHLORIDE 0.9% 1,000 ML IV SCH ×2 (00:15→22:34)
[2019-08-23] MEDS: ZINC OXIDE PASTE 113 GM TUBE TOP SCH ×3 (00:15→20:12)
[2019-08-23] MEDS: NYSTATIN CREAM 15 GM TUBE TOP SCH ×4 (00:15→20:12)
[2019-08-23] MEDS: INSULIN REGULAR 100 UNIT/ML SUBCUT SCH ×5 (00:43→23:25)
[2019-08-23 05:18] LABS: Hemoglobin 9.8 GM/DL (12.0-16.0)
[2019-08-23 05:38] LABS: Calcium 8.2 MG/DL (8.5-10.1); Osmolality,Calculated 294.8 MOS/KG (273-304)
[2019-08-23] MEDS: LEVOTHYROXINE 100 MCG TABLET PO SCH (06:37)
[2019-08-23] MEDS: PANTOPRAZOLE 40 MG VIAL IV SCH (09:25)
[2019-08-23] MEDS ORDERED: hydrALAZINE 20 MG/1 ML VIAL IV PRN (11:18)
[2019-08-23 14:00] LABS: Hematocrit 36.2 VOL% (35.7-47.0); Hemoglobin 11.7 GM/DL (12.0-16.0)
[2019-08-23 18:41] LABS: Hematocrit 33.1 VOL% (35.7-47.0); Hemoglobin 10.7 GM/DL (12.0-16.0)
[2019-08-24 00:47] LABS: Hemoglobin 10.7 GM/DL (12.0-16.0)
[2019-08-24 05:48] LABS: Hematocrit 32.8 VOL% (35.7-47.0); Hemoglobin 10.7 GM/DL (12.0-16.0)
[2019-08-24] MEDS: INSULIN REGULAR 100 UNIT/ML SUBCUT SCH ×3 (06:11→18:28)
[2019-08-24] MEDS: LEVOTHYROXINE 100 MCG TABLET PO SCH (06:20)
[2019-08-24 06:22] LABS: Calcium 7.8 MG/DL (8.5-10.1); Osmolality,Calculated 291.7 MOS/KG (273-304); Prealbumin 13.1 MG/DL (20-40)
[2019-08-24] MEDS: SODIUM CHLORIDE 0.9% 1,000 ML IV SCH (08:01)
[2019-08-24] MEDS: PANTOPRAZOLE 40 MG VIAL IV SCH (10:00)
[2019-08-24] MEDS: NYSTATIN CREAM 15 GM TUBE TOP SCH ×2 (10:01→15:33)
[2019-08-24] MEDS: ZINC OXIDE PASTE 113 GM TUBE TOP SCH ×2 (10:01→21:11)
[2019-08-24 11:31] LABS: Hematocrit 36.7 VOL% (35.7-47.0)
[2019-08-24] MEDS ORDERED: PANTOPRAZOLE 40 MG VIAL IV SCH (21:00)
[2019-08-24] MEDS: NYSTATIN POWDER 15 GM BOTTLE TOP SCH (21:11)
[2019-08-25] MEDS: INSULIN REGULAR 100 UNIT/ML SUBCUT SCH ×4 (02:59→18:17)
[2019-08-25] MEDS: SODIUM CHLORIDE 0.9% 1,000 ML IV SCH ×2 (03:00→07:15)
[2019-08-25 06:00] LABS: Basophils % 0.3 % (0.0-0.8); Eosinophils # 0.1 10*3/uL (0.0-0.87); Eosinophils % 1.5 % (0.00-10.9); Hematocrit 30.5 VOL% (35.7-47.0); Lymphocytes # 0.8 10*3/uL (1.4-4.0); Lymphocytes % 22.9 % (21.3-54.2); Mean Corpuscular HGB Conc 32.8 GM/DL (32-36); Mean Corpuscular Volume 98.7 FL (87-102); Mean Platelet Volume 11.6 FL (9.6-12.0); Monocytes % 7.6 % (1.7-12.7); Neutrophils % 67.7 % (38.7-73.9); Red Blood Count 3.09 MC/CUMM (3.8-5.5); Red Cell Distribution Width 13.2 % (9.3-17.3); White Blood Count 3.3 T/CUMM (4-12)
[2019-08-25 06:04] LABS: Platelet Count 85 T/CUMM (130-400)
[2019-08-25 06:23] LABS: Hypochromasia 1+; Ovalocytes Slight; Platelet Estimate Decreased
[2019-08-25] MEDS: LEVOTHYROXINE 100 MCG TABLET PO SCH (08:06)
[2019-08-25] MEDS ORDERED: LIDOCAINE 2% 5 ML VIAL ONE (10:00)
[2019-08-25] MEDS: ZINC OXIDE PASTE 113 GM TUBE TOP SCH ×2 (10:11→22:51)
[2019-08-25] MEDS: NYSTATIN POWDER 15 GM BOTTLE TOP SCH ×2 (10:12→22:52)
[2019-08-25] MEDS: PANTOPRAZOLE 40 MG TABLET PO SCH (10:15)
[2019-08-26 00:56] LABS: CDT Result Negative (Negative); CDT Specimen Source STOOL
[2019-08-26] MEDS: INSULIN REGULAR 100 UNIT/ML SUBCUT SCH ×2 (01:42→06:00)
[2019-08-26 05:40] LABS: Basophils % 0.6 % (0.0-0.8); Eosinophils # 0.1 10*3/uL (0.0-0.87); Eosinophils % 2.2 % (0.00-10.9); Hematocrit 28.2 VOL% (35.7-47.0); Hemoglobin 9.2 GM/DL (12.0-16.0); Immature Granulocytes % 0.6 %; Immature Granulocytes Absolute 0.02 #; Lymphocytes # 0.9 10*3/uL (1.4-4.0); Lymphocytes % 28.5 % (21.3-54.2); Mean Corpuscular HGB Conc 32.6 GM/DL (32-36); Mean Corpuscular Volume 101.4 FL (87-102); Monocytes % 7.6 % (1.7-12.7); Neutrophils % 60.5 % (38.7-73.9); Platelet Count 100 T/CUMM (130-400); Red Blood Count 2.78 MC/CUMM (3.8-5.5); Red Cell Distribution Width 13.3 % (9.3-17.3); White Blood Count 3.2 T/CUMM (4-12)
[2019-08-26 06:06] LABS: Calcium 7.8 MG/DL (8.5-10.1); Osmolality,Calculated 290.8 MOS/KG (273-304)
[2019-08-26 06:23] LABS: Anisocytosis 1+; Platelet Estimate Adequate
[2019-08-26 06:24] LABS: Macrocytosis Slight
[2019-08-26] MEDS: LEVOTHYROXINE 100 MCG TABLET PO SCH (07:24)
[2019-08-26] MEDS ORDERED: MAGNESIUM SULF RIDER 2 GM in PREMIX 1 EACH IV PRN (07:45)
[2019-08-26] MEDS ORDERED: MAGNESIUM SULF RIDER 4 GM in PREMIX 1 EACH IV PRN (07:45)
[2019-08-26] MEDS: ZINC OXIDE PASTE 113 GM TUBE TOP SCH (09:18)
[2019-08-26] MEDS: NYSTATIN POWDER 15 GM BOTTLE TOP SCH (09:18)
[2019-08-26] MEDS: PANTOPRAZOLE 40 MG TABLET PO SCH (09:18)
[2019-08-26] MEDS: SODIUM CHLORIDE 0.9% 1,000 ML IV SCH (09:51)
[2019-08-26] MEDS ORDERED: DEXTROSE 10% 25 GM/250 ML BAG IV PRN (10:00)
[2019-08-26] MEDS ORDERED: INSULIN REGULAR 100 UNIT/ML SUBCUT SCH (11:30)
[2019-08-26] MEDS ORDERED: INFLUENZA VIRUS VACCINE 0.5 ML SYRINGE IM ONE (12:05)
[2019-08-26] MEDS ORDERED: PNEUMOCOCCAL VACCINE (13 VALENT) 0.5 ML SYRINGE IM ONE (12:05)
[2019-08-26 13:26] VITALS: BP 151/72
== END 2019-08-26 13:19 | disposition home or self-care (01) | DRG 241 ==
LOC: N.TELES 08:03 → SUATTDRO 08:03
PROVIDERS: ADMIT Internal Medicine; ATTEND Internal Medicine